=== PATIENT | female | born 1940 | race Caucasian/White ===

== ENCOUNTER → 2016-06-19 | Outpatient (CLI) | payer OTHER ==
[~2016-06-19] MED LIST: ATEN50TA PO; CRESTOR5 MG PO; DIGO0.25 PO; LORA0.5T PO; SERT50TA8 PO
--- NOTE | 2016-06-19 14:07 | RAD ---
Indication six-month follow-up. Targeted ultrasound was performed. Examination was targeted to the 11:30 to 12:00 position of the left breast. There are small well-defined probably benign masses similar to slightly smaller than on the study 12/30/2015. Follow-up mammography is suggested in December of this year. Additional ultrasounds could be obtained if the mammographic images warrant them
== END | disposition home or self-care (01) ==
LOC: KCIC US 13:11
PROVIDERS: ATTEND Internal Medicine
DX: R92.8 Other abnormal and inconclusive findings on diagnostic imaging of breast (principal)
CPT/HCPCS: 76641

== ENCOUNTER → 2017-06-11 | Outpatient (CLI) | payer OTHER ==
[2017-06-11] MEDS: REGADENOSON 0.4 MG/5 ML DISP.SYRIN. IV (09:55)
== END | disposition home or self-care (01) ==
LOC: NM 07:51
DX: R07.89 Other chest pain (principal); F17.200 Nicotine dependence, unspecified, uncomplicated
CPT/HCPCS: 78452; 93017; 96374; 96375; 96376; A9500; J2785

== ENCOUNTER → 2017-06-25 | Outpatient (CLI) | payer OTHER | END | disposition home or self-care (01) | LOC: US 12:38 | DX: I70.202 Unspecified atherosclerosis of native arteries of extremities, left leg (principal); R60.0 Localized edema | CPT/HCPCS: 93925; 93970 ==

== ENCOUNTER → 2017-12-31 | Outpatient (CLI) | payer OTHER ==
--- NOTE | 2017-12-31 12:16 | KCIC ---
EXAM: Bilateral digital screening mammogram with tomosynthesis. HISTORY: 77-year-old female presents for screening mammography. TECHNIQUE: Full-field digital craniocaudal and mediolateral oblique 2D and 3D tomosynthesis images of both breasts are obtained for evaluation. Computer aided detection with kozaza.comD software version 9.3 was applied. COMPARISON: 12/09/2015 BREAST PARENCHYMAL DENSITY: Level B - Scattered fibroglandular densities. FINDINGS: There is no new suspicious mass, microcalcification or region of architectural distortion. IMPRESSION: BI-RADS Category 2: Benign finding(s). RECOMMENDATION: Annual mammography is recommended. If your mammogram demonstrates that you have dense breast tissue, which could hide abnormalities, and if you have other risk factors for breast cancer that have been identified, you might benefit from supplemental screening tests that may be suggested by your ordering physician. Dense breast tissue, in and of itself, is a relatively common condition. This information is not provided to cause undue concern, but rather to raise your awareness and to promote discussion with your physician regarding the presence of other risk factors, in addition to dense breast tissue. A report of your mammography results will be sent to you and your physician. You should contact your physician if you have any questions or concerns regarding this report. Mammography is a sensitive method for finding small breast cancers, but it does not detect them all and is not a substitute for careful clinical examination. A negative mammogram does not negate a clinically suspicious finding and should not result in delay in biopsying a clinically suspicious abnormality. PQRS compliance statement - Patient information was entered into a reminder system with a target due date for the next mammogram. "Our facility is accredited by the [employer] Mammography [employer]." Electronically signed by: Bindu Fuentes MD (12/31/2017 12:13 PM) [facility]
== END | disposition home or self-care (01) ==
LOC: KCIC MAMMO 11:22
PROVIDERS: ATTEND Internal Medicine
DX: Z12.31 Encounter for screening mammogram for malignant neoplasm of breast (principal)
CPT/HCPCS: 77063; 77067

== ENCOUNTER → 2018-01-02 | Outpatient (CLI) | payer OTHER ==
--- NOTE | 2018-01-02 16:59 | KCIC ---
CT study of the chest without [id number] screening study Clinical indications: History of smoking for 50 years. Lung cancer screening. History of non-Hodgkin's lymphoma. TECHNIQUE: Low-dose helical CT scanning of the chest was performed. PQRS compliance Statement One or more of the following individualized dose reduction techniques were utilized for this study: 1. Automated exposure control 2. Adjustment of the mA and/or kV according to patient size 3. Use of iterative reconstruction technique COMPARISON: Chest CT study dated September 24, 2003. FINDINGS: No enlarged thoracic lymphadenopathy is evident. No focal aneurysmal dilatation of the thoracic aorta is seen. 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 The heart size is normal. No pericardial effusion is seen. There is chronic scarring within the inferior segment of the lingula seen previously. No lung nodule or lung mass or consolidative lung infiltrate is seen. No pleural effusion or pneumothorax is evident. The proximal bronchial tree is patent. No osteolytic process is seen. IMPRESSION: No acute radiographic abnormality is evident. No lung mass or lung nodule is evident. LUNG RADS category 1 Calcified atheromatous disease of coronary arteries. Electronically signed by: Chris Batres MD (01/02/2018 4:55 PM) [id number]
== END | disposition home or self-care (01) ==
LOC: KCIC CT 12:47
PROVIDERS: ATTEND Internal Medicine
DX: Z12.2 Encounter for screening for malignant neoplasm of respiratory organs (principal); I25.10 Atherosclerotic heart disease of native coronary artery without angina pectoris; Z87.891 Personal history of nicotine dependence; Z85.72 Personal history of non-Hodgkin lymphomas
CPT/HCPCS: G0297

== ENCOUNTER → 2018-10-27 | Outpatient (CLI) | payer OTHER ==
--- NOTE | 2018-10-27 15:20 | RAD ---
MR#: [id number] Date of Study: 10/27/2018 Ordering Physician: ARJUN CASTRO, Referring Physician: ARJUN CASTRO, Tech: Tobi Ward, JESSIAC, RDMS, RVT, RDCS, RTR APPROVED REPORT Patient Location : OUT-PATIENT Indications Lower Extremity Pain : Bilateral Findings Grayscale images of the bilateral saphenofemoral junctions do not reveal any obvious evidence of thro mbus. The right great saphenous vein measures 4 mm and appears to have been previously ablated. The l eft great saphenous vein measures approximately 4 mm and does not show any evidence of reflux. The bilateral lesser saphenous veins do not show any evidence of reflux. Critical Notification Critical Value: No <Conclusion> 1. No evidence of reflux in the bilateral greater and lesser saphenous veins Signed by : Arjun Castro, Electronically Approved : 10/27/2018 15:20:32
--- NOTE | 2018-10-27 18:11 | RAD ---
MR#: [id number] Date of Study: 10/27/2018 Ordering Physician: SHAHID CASTRO, Referring Physician: SHAHID CASTRO, Tech: Tobi Ward MBA, RDMS, RVT, RDCS, RTR APPROVED REPORT Patient Location: OUT-PATIENT Indications PAD VELOCITY AND DOPPLER WAVEFORM ANALYSIS RIGHT cm/secWaveformSeverity LEFT cm/secWaveform Severity dCFA 117.0TriphasicdCFA 98.0Biphasic Prof Fem Art. 82.0TriphasicProf Fem Art. 73.0Monophasic Fem Art Prox. 111.0TriphasicFem Art Prox. 112.0Triphasic Fem Art Mid. 117.0TriphasicFem Art Mid. 118.0Triphasic Fem Art Dist. 1123.0TriphasicFem Art Dist. 106.0Triphasic Pop Art(Fossa) 71.0TriphasicPop Art(AK) 57.0Biphasic [employer] Prox. 223.0BiphasicPTA Prox. 19.0Monophasic [employer] Dist. 75.0BiphasicPTA Dist. Occluded Per Art Mid. 47.0BiphasicPer Art Mid. 76.0Biphasic CAITIE Prox. 69.0BiphasicATA Prox. 64.0Biphasic DPA 58BiphasicDPA 81Biphasic Image Findings Grayscale images of the bilateral lower extremity arterial vessels demonstrate moderate diffuse plaqu e. No significant above knee disease is identified bilaterally. On the right below the knee there is likely greater than 50% stenosis involving the posterior tibial artery. There is otherwise three-vessel runoff. On the left below the knee the posterior tibial artery appears to be occluded in the mid to distal se gment with a robust two-vessel runoff in the form of a peroneal and anterior tibial vessels. Critical Notification Critical Value: No <Conclusion> 1. 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 Otherwise no significant abno rmalities noted. Signed by : Shahid Castro, Electronically Approved : 10/27/2018 18:10:57
== END | disposition home or self-care (01) ==
LOC: US 12:54
PROVIDERS: ATTEND Internal Medicine Cardiovascular Disease
DX: I73.9 Peripheral vascular disease, unspecified (principal); M79.605 Pain in left leg; M79.604 Pain in right leg
CPT/HCPCS: 93925; 93970

== ENCOUNTER → 2019-02-12 | Outpatient (CLI) | payer OTHER ==
--- NOTE | 2019-02-12 17:00 | KCIC ---
Bilateral digital screening mammograms with 3-D tomosynthesis: Reason for examination: Routine screening. Comparison is made to previous study dated studies dated 12/31/2017 and 12/09/2015. Bilateral mammograms in CC and oblique projections were obtained with 2-D imaging and 3-D tomosynthesis imaging on a Siemens Inspiration unit and reviewed on the workstation. Interpretation was made with the benefit of CAD. The skin and nipples show no abnormalities. No abnormal axillary lymph nodes are seen. The breast parenchyma shows scattered fatty and fibroglandular density. (Breast density: Category B.) There are no dominant masses, suspicious calcifications or architectural distortion. Impression: No evidence of malignancy. Recommend routine screening. BI-RAD Category 2: Benign. "Our facility is accredited by the [employer] Mammography Program." This patient's information has been entered into a reminder system for the patient to be notified with the results of her examination and a target date for the next mammogram. Electronically signed by: Sarah Avila MD (02/12/2019 4:57 PM) [facility]
== END | disposition home or self-care (01) ==
LOC: KCIC MAMMO 12:26
PROVIDERS: ATTEND Internal Medicine
DX: Z12.31 Encounter for screening mammogram for malignant neoplasm of breast (principal)
CPT/HCPCS: 77063; 77067

== ENCOUNTER 2019-09-29 16:15 | Inpatient (IN) | payer MEDICARE, OTHER ==
[2019-09-29] VITALS (10 sets, daily range): BP systolic 136–165; BP diastolic 65–97
[~2019-09-29] VITALS: Ht 162.6 cm; Wt 69.3 kg
[2019-09-29 16:35] LABS: HEMATOCRIT 42.7 % (36.0-47.0); HEMOGLOBIN 14.9 g/dL (12.0-15.5); RED BLOOD COUNT 4.59 x10^6/uL (3.50-5.40); RED CELL DISTRIBUTION WIDTH 13.6 % (11.5-14.5)
--- NOTE | 2019-09-29 16:47 | RAD ---
EXAM: CT Head without IV contrast INDICATION: Reason: FAUSTIN, LEFT FACIAL DROOP / Spl. Instructions: / History: TECHNIQUE: Multi-detector row CT images were obtained of the head without the use of IV contrast. All CT scans performed at this facility utilize dose optimization techniques as appropriate to the exam, including the following: Automated exposure control and adjustment of the mA and/or KV according to patient size (this includes techniques or standardized protocols for targeted exams where dose is indication/reason for exam). COMPARISON: None FINDINGS: BRAIN PARENCHYMA: No evidence of acute intraparenchymal hemorrhage or infarct. Mild generalized parenchymal volume loss. VENTRICLES & EXTRA-AXIAL SPACES: Ventricles are within normal limits. Basilar cisterns are patent. No pathologic extra-axial fluid collection or mass. Tortuous intracranial vessels, most notably the portal and ectatic vertebral artery which measures 5 mm in diameter. ORBITS: Orbital contents are unremarkable. SINUSES: Visualized paranasal sinuses and mastoid air cells are clear. OSSEOUS & SOFT TISSUES: Calvarium and skull base are intact. IMPRESSION: No acute intracranial pathology. FOR INTERNAL CODING PURPOSES Critical result: Findings discussed with MORTEZA JENSEN at 09/29/2019 4:44 PM. RESULT CODE: (C) Electronically signed by: Kiran Peterson MD (09/29/2019 4:44 PM) [id number]
[2019-09-29 16:54] LABS: GFR 53.8; POTASSIUM 4.1 mmol/L (3.5-5.1)
--- NOTE | 2019-09-29 16:56 | PHYS DOC ---
Past Medical History Past Medical History: Hypertension Past Medical History HIGH cholesterol, tachycardia Smoking Status: Never Smoker Drug Use: None General Adult EDM: Chief Complaint: NEURO SYMPTOMS/DEFICITS HPI: HPI: Patient is a 79 year old female with a last known normal at 15:15 presents with slurred speech and left-sided facial droop. Patient denies any weakness in arms or legs or visual changes. Of note patient had a little bit of a headache over the last 2 days but has not had any today. Patient denies any fevers chills cough vomiting or diarrhea. Patient is also having little slurred speech. Review of Systems: Review of Systems: Constitutional: Denies fever or chills. [] Eyes: Denies change in visual acuity. [] HENT: Denies nasal congestion or sore throat. [] Respiratory: Denies cough or shortness of breath. [] Cardiovascular: Denies chest pain or edema. [] GI: Denies abdominal pain, nausea, vomiting, bloody stools or diarrhea. [] : Denies dysuria. [] Musculoskeletal: Denies back pain or joint pain. [] Integument: Denies rash. [] Neurologic: Denies current headache but has new left-sided facial weakness. No numbness to the body no visual changes Endocrine: Denies polyuria or polydipsia. [] Lymphatic: Denies swollen glands. [] Psychiatric: Denies depression or anxiety. [] Heart Score: Risk Factors: Risk Factors: DM, Current or recent (<one month) smoker, HTN, HLP, family history of CAD, obesity. Risk Scores: Score 0 - 3: 2.5% MACE over next 6 weeks - Discharge Home Score 4 - 6: 20.3% MACE over next 6 weeks - Admit for Clinical Observation Score 7 - 10: 72.7% MACE over next 6 weeks - Early Invasive Strategies Allergies: Allergies: Allergies Coded Allergies Type Severity Reaction Last Updated Verified codeine Allergy Intermediate 06/15/13 Yes Physical Exam: PE: Constitutional: Well developed, well nourished, no acute distress, non-toxic appearance. [] HENT: Normocephalic, atraumatic, bilateral external ears normal, no trismus nose normal. [] Eyes: PERRLA, EOMI, conjunctiva normal, no discharge. [] Neck: Normal range of motion, no tenderness, supple, no stridor. [] Cardiovascular:Heart rate regular rhythm, Lungs & Thorax: Bilateral breath sounds clear to auscultation [] Abdomen: Bowel sounds normal, soft, no tenderness, no masses, no pulsatile masses. [] Skin: Warm, dry, no erythema, no rash. [] Back: No tenderness, no CVA tenderness. [] Extremities: No tenderness, no cyanosis, no clubbing, ROM intact, no edema. [] Neurologic: Alert and oriented X 3, normal motor function, normal sensory function, left-sided facial droop sparing the eyebrow. Dysarthria Psychologic: Affect normal, judgement normal, mood normal. [] Current Patient Data: Labs: Laboratory Tests Test 09/29/19 16:28 09/29/19 16:29 09/29/19 17:25 White Blood Count 16.0 x10^3/uL Red Blood Count 4.59 x10^6/uL Hemoglobin 14.9 g/dL Hematocrit 42.7 % Mean Corpuscular Volume 93 fL Mean Corpuscular Hemoglobin 32 pg Mean Corpuscular Hemoglobin Concent 35 g/dL Red Cell Distribution Width 13.6 % Platelet Count 402 x10^3/uL Prothrombin Time 12.0 SEC Prothromb Time International Ratio 0.9 Activated Partial Thromboplast Time 30 SEC Sodium Level 136 mmol/L Potassium Level 4.1 mmol/L Chloride Level 100 mmol/L Carbon Dioxide Level 31 mmol/L Anion Gap 5 Blood Urea Nitrogen 11 mg/dL Creatinine 1.0 mg/dL Estimated GFR (Cockcroft-Gault) 53.8 Glucose Level 84 mg/dL Calcium Level 9.0 mg/dL Total Bilirubin 0.7 mg/dL Direct Bilirubin 0.2 mg/dL Aspartate Amino Transf (AST/SGOT) 30 U/L Alanine Aminotransferase (ALT/SGPT) 49 U/L Alkaline Phosphatase 125 U/L Troponin I Quantitative < 0.017 ng/mL Total Protein 6.6 g/dL Albumin 3.4 g/dL Digoxin Level 1.0 ng/mL Digoxin Last Dose Date Unknown Digoxin Last Dose Time Unknown Glucose (Fingerstick) 88 mg/dL Urine Collection Type Unknown Urine Color Yellow Urine Clarity Clear Urine pH 7.0 Urine Specific Hargill 1.020 Urine Protein Negative mg/dL Urine Glucose (UA) Negative mg/dL Urine Ketones (Stick) Negative mg/dL Urine Blood Negative Urine Nitrite Negative Urine Bilirubin Negative Urine Urobilinogen Dipstick 0.2 mg/dL Urine Leukocyte Esterase Negative Urine RBC 0 /HPF Urine WBC 0 /HPF Urine Squamous Epithelial Cells Few /LPF Urine Bacteria 0 /HPF Current Medications Medications (Trade) Dose Ordered Sig/Yolanda Route PRN Reason Start Time Stop Time Status Last Admin Dose Admin Alteplase, Recombinant 6.2 ml @ 372 mls/hr 1X ONCE IV 09/29/19 17:15 09/29/19 17:16 DC 09/29/19 17:17 Alteplase, Recombinant 55.4 ml @ 55.4 mls/hr Q1H IV 09/29/19 17:15 09/29/19 18:14 DC 09/29/19 17:18 Sodium Chloride 50 ml @ 200 mls/hr 1X ONCE IV 09/29/19 17:15 09/29/19 17:29 DC Ondansetron HCl (Zofran) 4 mg STK-MED ONCE .ROUTE 09/29/19 17:05 09/29/19 17:05 DC Ondansetron HCl (Zofran) 4 mg STK-MED ONCE .ROUTE 09/29/19 17:05 09/29/19 17:06 DC Ondansetron HCl (Zofran) 4 mg 1X ONCE IVP 09/29/19 17:15 09/29/19 17:16 DC 09/29/19 17:20 Iohexol (Omnipaque 350 Mg/ml) 75 ml 1X ONCE IV 09/29/19 17:15 09/29/19 17:19 DC Info (CONTRAST GIVEN -- Rx MONITORING) 1 each PRN DAILY PRN MC SEE COMMENTS 09/29/19 17:30 10/01/19 17:29 Laboratory Tests Test 09/29/19 16:28 09/29/19 16:29 White Blood Count 16.0 x10^3/uL (4.0-11.0) H Red Blood Count 4.59 x10^6/uL (3.50-5.40) Hemoglobin 14.9 g/dL (12.0-15.5) Hematocrit 42.7 % (36.0-47.0) Mean Corpuscular Volume 93 fL (79-100) Mean Corpuscular Hemoglobin 32 pg (25-35) Mean Corpuscular Hemoglobin Concent 35 g/dL (31-37) Red Cell Distribution Width 13.6 % (11.5-14.5) Platelet Count 402 x10^3/uL (140-400) H Prothrombin Time 12.0 SEC (11.7-14.0) Prothrombin Time INR 0.9 (0.8-1.1) Activated Partial Thromboplast Time 30 SEC (24-38) Glucose (Fingerstick) 88 mg/dL (70-99) Laboratory Tests 09/29/19 16:28 Vital Signs: Vital Signs Date Time Temp Pulse Resp B/P (MAP) Pulse Ox O2 Delivery O2 Flow Rate FiO2 09/29/19 17:51 66 16 156/75 (102) 98 Room Air 09/29/19 17:44 70 16 155/72 (99) 98 Room Air 09/29/19 17:36 66 16 160/74 (102) 99 Room Air 09/29/19 17:21 64 16 160/72 (101) 98 09/29/19 17:06 64 16 165/72 (103) 98 09/29/19 16:51 68 16 162/79 (106) 98 09/29/19 16:42 72 20 138/90 (106) 99 09/29/19 16:27 70 20 159/86 (110) 99 Room Air 09/29/19 16:20 98.8 69 18 172/77 (108) 100 Room Air 98.8 EKG: EKG: EKG interpreted by me normal sinus rhythm with rate of 69 left axis deviation left anterior hemiblock incomplete right bundle branch block nonspecific ST changes [] Radiology/Procedures: Radiology/Procedures: [][facility] [address] [place] [address] IMAGING REPORT Signed PATIENT: MOOSE RIOS ACCOUNT: [id number] : 1940 LOCATION: ER AGE: 79 SEX: F EXAM STATUS: REG ER ORD. PHYSICIAN: MORTEZA JENSEN MD REASON: FAUSTIN, LEFT FACIAL DROOP PROCEDURE: CT CODE STROKE HEAD WO EXAM: CT Head without IV contrast INDICATION: Reason: FAUSTIN, LEFT FACIAL DROOP / Spl. Instructions: / History: TECHNIQUE: Multi-detector row CT images were obtained of the head without the use of IV contrast. All CT scans performed at this facility utilize dose optimization techniques as appropriate to the exam, including the following: Automated exposure control and adjustment of the mA and/or KV according to patient size (this includes techniques or standardized protocols for targeted exams where dose is indication/reason for exam). COMPARISON: None FINDINGS: BRAIN PARENCHYMA: No evidence of acute intraparenchymal hemorrhage or infarct. Mild generalized parenchymal volume loss. VENTRICLES & EXTRA-AXIAL SPACES: Ventricles are within normal limits. Basilar cisterns are patent. No pathologic extra-axial fluid collection or mass. Tortuous intracranial vessels, most notably the portal and ectatic vertebral artery which measures 5 mm in diameter. ORBITS: Orbital contents are unremarkable. SINUSES: Visualized paranasal sinuses and mastoid air cells are clear. OSSEOUS & SOFT TISSUES: Calvarium and skull base are intact. IMPRESSION: No acute intracranial pathology. FOR INTERNAL CODING PURPOSES Critical result: Findings discussed with MORTEZA JENSEN at 09/29/2019 4:44 PM. RESULT CODE: (C) Electronically signed by: Yana Peterson MD (09/29/2019 4:44 PM) [id number] DICTATED and SIGNED BY: YANA PETERSON MD DATE: 09/29/19 1644 [facility] [address] [place], [place] [id number] IMAGING REPORT Signed PATIENT: MOOSE RIOS ACCOUNT: [id number] : 1940 LOCATION: ER AGE: 79 SEX: F EXAM STATUS: REG ER ORD. PHYSICIAN: MORTEZA JENSEN MD REASON: CVA PROCEDURE: PORTABLE CHEST 1V EXAM: PORTABLE CHEST 1V INDICATION: Reason: CVA / Spl. Instructions: / History: . TECHNIQUE: Single view COMPARISON: None FINDINGS: The heart size is normal. The great vessels appear unremarkable. There is no hilar or mediastinal mass. The lungs are clear. There is no pleural effusion or pneumothorax. There are no significant osseous abnormalities. IMPRESSION: No active cardiopulmonary disease. Electronically signed by: Yana Peterson MD (09/29/2019 4:52 PM) [id number] DICTATED and SIGNED BY: YANA PETERSON MD DATE: 09/29/19 1000 [facility] [address] [place] [address] IMAGING REPORT Signed PATIENT: MOOSE RIOS ACCOUNT: [id number] : 1940 LOCATION: ER AGE: 79 SEX: F EXAM STATUS: REG ER ORD. PHYSICIAN: MORTEZA JENSEN MD REASON: FAUSTIN, LEFT FACIAL DROOP PROCEDURE: CT ANGIOGRAPHY HEAD AND NECK EXAM: CT Angiogram of the Head and Neck INDICATION: Reason: FAUSTIN, LEFT FACIAL DROOP / Spl. Instructions: IV OMNI 350 75 MLS / History: TECHNIQUE: CT images were obtained through the head per standard CTA protocol. Multiplanar and 3D reformatted images were generated from the CT dataset on an independent workstation. All CT scans performed at this facility utilize dose optimization techniques as appropriate to the exam, including the following: Automated exposure control and adjustment of the mA and/or KV according to patient size (this includes techniques or standardized protocols for targeted exams where dose is indication/reason for exam). IV CONTRAST: Administered COMPARISON: Noncontrast head CT same day FINDINGS: CTA HEAD: There is eccentric filling defect in the right M2 segment within the sylvian fissure, consistent with partially occlusive thrombus. Otherwise, no high-grade large vessel stenosis, proximal or branch vessel occlusion, aneurysm, or vascular malformation. ANTERIOR CIRCULATION: The anterior and right middle cerebral arteries are widely patent. ANTERIOR COMMUNICATING ARTERY: Patent. POSTERIOR COMMUNICATING ARTERIES: Diminutive and not well seen. They may be hypoplastic. POSTERIOR CIRCULATION: Vertebral and basilar arteries are widely patent. Bilateral posterior inferior cerebellar arteries (PICAs), anterior inferior cerebellar arteries (AICAs), and superior cerebellar arteries (SCAs) are visualized and patent. OTHER: No abnormal brain parenchymal enhancement. Paranasal sinuses demonstrate complete opacification of the left maxillary sinus by soft tissue with mucosal enhancement, part of which protrudes into the left nasal cavity and into the anterior ethmoid air cells and the left frontoethmoid recess.. NECK CTA: AORTA: The aortic arch is not fully included. No dissection or acute aortic injury. No hemodynamically significant great vessel origin stenosis. RIGHT CAROTID: Common and internal carotid arteries are widely patent, without evidence of flow limiting stenosis or dissection. LEFT CAROTID: Common and internal carotid arteries are widely patent, without evidence of flow limiting stenosis or dissection. VERTEBRAL ARTERIES: Codominant. No evidence of dissection or flow limiting stenosis. SUBCLAVIAN ARTERIES:Subclavian arteries are patent without stenosis. SOFT TISSUES: Soft tissues are unremarkable. Lung apices show lucencies compatible with centrilobular pattern emphysema. Where applicable, evaluation of ICA stenosis was performed using NASCET criteria, where the site of greatest stenosis is compared to the diameter of the ICA distal to the carotid bulb. IMPRESSION: 1. Partially occlusive M2 segment right middle cerebral artery thrombus. 2. Otherwise unremarkable radiographic study of the head and neck, with great vessel origin is not fully included in the [id number]. 3. Incidental findings of emphysema and sinus disease in the left paranasal sinuses. FOR INTERNAL CODING PURPOSES Critical result: Findings discussed with MORTEZA JENSEN at 09/29/2019 5:02 PM. RESULT CODE: (C) [facility] [address] [place] [address] IMAGING REPORT Signed PATIENT: MOOSE RIOS ACCOUNT: [id number] : 1940 LOCATION: ER AGE: 79 SEX: F EXAM STATUS: REG ER ORD. PHYSICIAN: MORTEZA JENSEN MD REASON: HEADACHE PROCEDURE: CT HEAD WO CONTRAST Exam: CT head INDICATION: Headache TECHNIQUE: Sequential axial images through the head were obtained without the administration of IV contrast. Comparisons: CT 09/29/2019 FINDINGS: Evaluation is limited secondary to recent contrast administration. Minimal hyperdensity noted within sulci of the right occipital lobe on image 13 and right frontal lobe image 9. No large focal parenchymal lesion or hemorrhage is identified. There is no midline shift or sulcal effacement. No large acute vascular territory infarction is identified. Barahona-white distinction is preserved. The ventricular system is within normal limits without compression hydrocephalus. The basal cisterns are well maintained. The visualized portions of the paranasal sinuses and mastoid air cells are well-pneumatized. No acute fractures. IMPRESSION: Limited evaluation secondary to postcontrast technique. There are a few areas of hyperdensity noted within the sulci of the right frontal lobe and right occipital lobe as described above. This may be related to venous drainage of IV contrast however small amount of subarachnoid hemorrhage is not excluded. Short-term follow-up imaging is recommended to reassess. Exposure: One or more of the following in the visualized dose reduction techniques were utilized for this examination: 1. Automated exposure control 2. Adjustment of the MA and/or KV according to patient size Use of iterative of reconstructive technique FOR INTERNAL CODING PURPOSES Critical result: Findings discussed with MORTEZA JENSEN at 09/29/2019 5:57 PM. RESULT CODE: (C) Electronically signed by: Jose Ferrera MD (09/29/2019 5:58 PM) [id number] DICTATED and SIGNED BY: JOSE FERRERA MD DATE: 09/29/191757 Course & Med Decision Making: Course & Med Decision Making Pertinent Labs and Imaging studies reviewed. (See chart for details) [] 1a Level of Consciousness: 0 = Alert; keenly responsive. 1b LOC Questions: 0 = Answers both questions correctly. 1c 0 = Performs both tasks correctly. 2 Best Gaze: 0 = Normal. 3. Visual: 0 = No visual loss. 4. Facial Palsy: 0 = Normal symmetrical movements. 2 = Partial paralysis (total or near-total paralysis of lower face). 5. Motor Arm: Left 0 = No drift; limb holds 90 (or 45) degrees for full 10 seconds. Right 0 = No drift; limb holds 90 (or 45) degrees for full 10 seconds. 6. Motor Leg: Left 0 = No drift; leg holds 30-degree position for full 5 seconds. n Right 0 = No drift; leg holds 30-degree position for full 5 seconds. 7. Limb Ataxia: 0 = present in no limbs 8. Sensory: 0 = Normal; no sensory loss. 9. Best Langauge: 0 = Normal 10 Dysarthria: 1 = [id number] dysarthria; patient slurs at least some words and, at worst, can be understood with some difficulty. 11. Extinction and Inattention (formerly Neglect): 0 = No abnormality. total: 3 Patient presents with a NIH of 3 in the stroke window with no contraindications. I paged neurology at 1649 I heard back from at 1704 and discussed the case with him and we both agree on TPA. Patient has a right M2 partial occlusion. I discussed the case with at who will review the images to see if any interventions are possible for interventional neurology.. At 1713 the TPA was started. At 1734 the patient began having headache the TPA was stopped and she went for stat CT. At 1735 called back and says with partial occlusion is not usually treated with clot retrieval. Repeat head CT shows a possible hemorrhagic conversion. TPA was stopped once the patient began having a headache. With family with Dr. shultz from neurosurgery who says they will see the patient in the hospital. I spoke with Dr. Dickerson will admit the patient. Clinical reassessment after TPA shows improvement of the left-sided facial droop. Critical care time was [60] minutes exclusive of procedures. Critical care time was [60] minutes which includes time at bedside, spent in discussion of patient's care with specialist and/or family members, with interpretation of laboratory and/or radiological studies and is exclusive of procedures. Clinical condition: Acute ischemic stroke with hemorrhagic conversion Interventions: TPA, admission to the ICU with multiple consultations and multiple reassessments Erwin Disclaimer: Erwin Disclaimer: This electronic medical record was generated, in whole or in part, using a voice recognition dictation system. Departure Departure Impression: Primary Impression: Acute ischemic cerebrovascular accident (CVA) involving right middle cerebral artery territory Disposition: ADMITTED INPATIENT Condition: CRITICAL Referrals: HANNAH MONTGOMERY MD (PCP) Justicifation of Admission Dx: Justifications for Admission: Justification of Admission Dx: Yes MORTEZA JENSEN MD Sep 29, 2019 16:56
[2019-09-29 16:58] LABS: ALBUMIN 3.4 g/dL (3.4-5.0); DIRECT BILIRUBIN 0.2 mg/dL (0.0-0.2); TOTAL BILIRUBIN 0.7 mg/dL (0.2-1.0); TOTAL PROTEIN 6.6 g/dL (6.4-8.2)
[2019-09-29] MEDS ORDERED: ONDANSETRON PF 4 MG/2 ML VIAL. ONE ×2 (17:05)
[2019-09-29] MEDS ORDERED: ALTEPLASE 6.2 MG IV ONE (17:15)
[2019-09-29] MEDS ORDERED: ALTEPLASE IV SCH (17:15)
[2019-09-29] MEDS ORDERED: IV NORMAL SALINE 50ML 50 ML IV ONE (17:15)
[2019-09-29] MEDS ORDERED: IOHEXOL 350 MG/ML 100 ML VIAL. IV ONE (17:15)
[2019-09-29] MEDS ORDERED: ONDANSETRON PF 4 MG/2 ML VIAL. IVP ONE (17:15)
--- NOTE | 2019-09-29 17:17 | RAD ---
EXAM: CT Angiogram of the Head and Neck INDICATION: Reason: FAUSTIN, LEFT FACIAL DROOP / Spl. Instructions: IV OMNI 350 75 MLS / History: TECHNIQUE: CT images were obtained through the head per standard CTA protocol. Multiplanar and 3D reformatted images were generated from the CT dataset on an independent workstation. All CT scans performed at this facility utilize dose optimization techniques as appropriate to the exam, including the following: Automated exposure control and adjustment of the mA and/or KV according to patient size (this includes techniques or standardized protocols for targeted exams where dose is indication/reason for exam). IV CONTRAST: Administered COMPARISON: Noncontrast head CT same day FINDINGS: CTA HEAD: There is eccentric filling defect in the right M2 segment within the sylvian fissure, consistent with partially occlusive thrombus. Otherwise, no high-grade large vessel stenosis, proximal or branch vessel occlusion, aneurysm, or vascular malformation. ANTERIOR CIRCULATION: The anterior and right middle cerebral arteries are widely patent. ANTERIOR COMMUNICATING ARTERY: Patent. POSTERIOR COMMUNICATING ARTERIES: Diminutive and not well seen. They may be hypoplastic. POSTERIOR CIRCULATION: Vertebral and basilar arteries are widely patent. Bilateral posterior inferior cerebellar arteries (PICAs), anterior inferior cerebellar arteries (AICAs), and superior cerebellar arteries (SCAs) are visualized and patent. OTHER: No abnormal brain parenchymal enhancement. Paranasal sinuses demonstrate complete opacification of the left maxillary sinus by soft tissue with mucosal enhancement, part of which protrudes into the left nasal cavity and into the anterior ethmoid air cells and the left frontoethmoid recess.. NECK CTA: AORTA: The aortic arch is not fully included. No dissection or acute aortic injury. No hemodynamically significant great vessel origin stenosis. RIGHT CAROTID: Common and internal carotid arteries are widely patent, without evidence of flow limiting stenosis or dissection. LEFT CAROTID: Common and internal carotid arteries are widely patent, without evidence of flow limiting stenosis or dissection. VERTEBRAL ARTERIES: Codominant. No evidence of dissection or flow limiting stenosis. SUBCLAVIAN ARTERIES:Subclavian arteries are patent without stenosis. SOFT TISSUES: Soft tissues are unremarkable. Lung apices show lucencies compatible with centrilobular pattern emphysema. Where applicable, evaluation of ICA stenosis was performed using NASCET criteria, where the site of greatest stenosis is compared to the diameter of the ICA distal to the carotid bulb. IMPRESSION: 1. Partially occlusive M2 segment right middle cerebral artery thrombus. 2. Otherwise unremarkable radiographic study of the head and neck, with great vessel origin is not fully included in the [id number]. 3. Incidental findings of emphysema and sinus disease in the left paranasal sinuses. FOR INTERNAL CODING PURPOSES Critical result: Findings discussed with MORTEZA JENSEN at 09/29/2019 5:02 PM. RESULT CODE: (C) Electronically signed by: Kiran Peterson MD (09/29/2019 5:14 PM) [id number]
[2019-09-29] MEDS ORDERED: CONTRAST GIVEN. MC PRN (17:30)
[2019-09-29 17:37] LABS: BILIRUBIN,URINE NEGATIVE (NEG); CLARITY,URINE CLEAR; COLOR,URINE YELLOW; NITRITE,URINE NEGATIVE (NEG); PROTEIN,URINE NEGATIVE (NEG-TRACE); UROBILINOGEN,URINE 0.2 mg/dL (0.2 mg/dL)
[2019-09-29 17:54] LABS: BACTERIA,URINE 0 /HPF (0-FEW); RBC,URINE 0 /HPF (0-2); SQUAMOUS EPITHELIAL CELL,UR FEW /LPF; WBC,URINE 0 /HPF (0-4)
--- NOTE | 2019-09-29 18:01 | RAD ---
Exam: CT head INDICATION: Headache TECHNIQUE: Sequential axial images through the head were obtained without the administration of IV contrast. Comparisons: CT 09/29/2019 FINDINGS: Evaluation is limited secondary to recent contrast administration. Minimal hyperdensity noted within sulci of the right occipital lobe on image 13 and right frontal lobe image 9. No large focal parenchymal lesion or hemorrhage is identified. There is no midline shift or sulcal effacement. No large acute vascular territory infarction is identified. Barahona-white distinction is preserved. The ventricular system is within normal limits without compression hydrocephalus. The basal cisterns are well maintained. The visualized portions of the paranasal sinuses and mastoid air cells are well-pneumatized. No acute fractures. IMPRESSION: Limited evaluation secondary to postcontrast technique. There are a few areas of hyperdensity noted within the sulci of the right frontal lobe and right occipital lobe as described above. This may be related to venous drainage of IV contrast however small amount of subarachnoid hemorrhage is not excluded. Short-term follow-up imaging is recommended to reassess. Exposure: One or more of the following in the visualized dose reduction techniques were utilized for this examination: 1. Automated exposure control 2. Adjustment of the MA and/or KV according to patient size Use of iterative of reconstructive technique FOR INTERNAL CODING PURPOSES Critical result: Findings discussed with MORTEZA JENSEN at 09/29/2019 5:57 PM. RESULT CODE: (C) Electronically signed by: Jose Borges MD (09/29/2019 5:58 PM) [id number]
[2019-09-29] MEDS ORDERED: DIGO250T3 PO (19:22)
[2019-09-29] MEDS ORDERED: CRESTOR5 MG PO (19:22)
[2019-09-29] MEDS ORDERED: SERT50TA PO (19:22)
[2019-09-29] MEDS ORDERED: LORA0.5T96 PO (19:22)
[2019-09-29] MEDS ORDERED: ATEN50TA PO (19:22)
--- NOTE | 2019-09-29 20:30 | NUR ---
Patient arrived to ICU room 103 via gurney accompanied by ED RN at 1945. Patient able to move self from ER gurney to ICU bed without assistance. Patient hooked up to ICU monitors. NIH stroke scale completed-result is a 5 (see NIHSS intervention for further details). Patient A&Ox4, SR on monitor, RA sats in low to mid 90s, and ROSS. Weakness noted in L arm. Patient states L arm feels heavy. 2 patent IVs in placed, flushed and then SL. Pupils are 4 mm and PERRL. VSS at this time and patient situated in bed. Oriented patient to unit routines, call light, bed controls, tv controls, activity (BR), and diet (NPO). Will continue to do neuro checks and vitals Q30 minutes for 6 hours per TPA checklist and per Dr. Holcomb.
--- NOTE | 2019-09-29 22:30 | PDOC1 ---
History and Physical Date of Admission: Date of Admission DATE: 09/29/19 TIME: 22:23 Chief Complaint: Chief Complain: Facial droop and slurred speech History of Present Illness: HPI: 79 year old female with a last known normal at 15:15 presents with slurred speech and left-sided facial droop. Patient denies any weakness in arms or legs or visual changes. Of note patient had a little bit of a headache over the last 2 days but has not had any today. Patient denies any fevers chills cough vomiting or diarrhea. Patient is also having little slurred speech. ED course: Patient received TPA approved neuro exam. She had a headache after the tPA and a CT head was repeated which did show some hyperdensities concerning for hemorrhage. Patient will be transferred to the ICU for close monitoring of her neuro exam. Patient seen and examined in the ED. She had reported NIH of 3 Past Medical/Surgical History: PMH/PSH: Past Medical History: Hypertension, dyslipidemia, tachycardia Allergies: Allergies: Coded Allergies: codeine (Verified Allergy, Intermediate, 06/15/13) Family History: Family History: Review and none reported Social History: Social History: Smoking Status: Never Smoker Drug Use: None Current Medications: Current Medications Current Medications Alteplase, Recombinant 6.2 ml @ 372 mls/hr 1X ONCE IV Last administered on 09/29/19at 17:17; Start 09/29/19 at 17:15; Stop 09/29/19 at 17:16; Status DC Alteplase, Recombinant 55.4 ml @ 55.4 mls/hr Q1H IV Last administered on 09/29/19at 17:18; Start 09/29/19 at 17:15; Stop 09/29/19 at 18:14; Status DC Sodium Chloride 50 ml @ 200 mls/hr 1X ONCE IV ; Start 09/29/19 at 17:15; Stop 09/29/19 at 17:29; Status DC Ondansetron HCl (Zofran) 4 mg STK-MED ONCE .ROUTE ; Start 09/29/19 at 17:05; Stop 09/29/19 at 17:05; Status DC Ondansetron HCl (Zofran) 4 mg STK-MED ONCE .ROUTE ; Start 09/29/19 at 17:05; Stop 09/29/19 at 17:06; Status DC Ondansetron HCl (Zofran) 4 mg 1X ONCE IVP Last administered on 09/29/19at 17:20; Start 09/29/19 at 17:15; Stop 09/29/19 at 17:16; Status DC Iohexol (Omnipaque 350 Mg/ml) 75 ml 1X ONCE IV ; Start 09/29/19 at 17:15; Stop 09/29/19 at 17:19; Status DC Info (CONTRAST GIVEN -- Rx MONITORING) 1 each PRN DAILY PRN MC SEE COMMENTS; Start 09/29/19 at 17:30; Stop 10/01/19 at 17:29 Active Scripts Active Reported Ativan (Lorazepam) 0.5 Mg Tablet 0.5 Mg PO BID Crestor (Rosuvastatin Calcium) 5 Mg Tablet 1 Tab PO 2 TIMES PER WEEK Zoloft (Sertraline Hcl) 50 Mg Tablet 1 Tab PO DAILY Atenolol 50 Mg Tablet 1 Tab PO DAILY Digoxin 250 Mcg Tablet 250 Mcg PO DAILY Sertraline Hcl 50 Mg Tablet 50 Mg PO Lorazepam 0.5 Mg Tablet 0.5 Mg PO Crestor (Rosuvastatin Calcium) 5 Mg Tablet 5 Mg PO Digoxin 0.25 Mg/5 Ml Solution 0.25 Mg PO Atenolol 50 Mg Tablet 50 Mg PO ROS: Review of Systems Review of System REVIEW OF SYSTEMS: GENERAL: Denies weakness SKIN: No bruising, hair changes or rashes. EYES: No blurred, double or loss of vision. NOSE AND THROAT: No history of nosebleeds, hoarseness or sore throat. HEART: No history of palpitations, chest pain or shortness of breath on exertion. LUNGS: Denies cough, hemoptysis, wheezing or shortness of breath. GASTROINTESTINAL: Denies changes in appetite, nausea, vomiting, diarrhea or constipation. GENITOURINARY: No history of frequency, urgency, hesitancy or nocturia. NEUROLOGIC: Denies history of numbness, tingling, or tremor. PSYCHIATRIC: No history of panic, anxiety or depression. ENDOCRINE: No history of heat or cold intolerance, polyuria or polydipsia. EXTREMITIES: Denies joint pain, pain on walking or stiffness. Physical Exam: Vital Signs: Vital Signs Date Time Temp Pulse Resp B/P (MAP) Pulse Ox O2 Delivery O2 Flow Rate FiO2 09/29/19 17:51 66 16 156/75 (102) 98 Room Air 7/28/20 16:20 98.8 98.8 Physcial Exam: GEN: No apparent distress. Alert and oriented HEENT: Normal cephalic, atraumatic, external auditory canals are patent EYES: Extraocular muscles are intact, pupil are equally round and reactive to light and accommodation MUSCULOSKELETAL: Well developed , well nourished, good range of motion ENDOCRINE: No thyromegaly was palpated LYMPHATICS: No cervical chain or axillary nodes were noted HEMATOPOIETIC: No bruising NECK: Supple, no JVD, no thyromegaly was noted LUNGS: Clear to auscultation in all lung manley without rhonchi or wheezing HEART: RRR, S!, S2 present. Peripheral pulses intact, no obvious murmurs noted ABDOMEN: Soft, nontender. Positive bowel sounds, no organomegaly, normal bowel sounds EXTREMITIES: Without clubbing, cyanosis, or edema. Pedal pulses intact. Negative Homans sign NEUROLOGIC: Normal speech and tone. A&O x 3, moves all extremities. Slight left lower facial droop PSYCHIATRIC: Normal affect, normal mood. Stable SKIN: No ulcerations or rashes, good skin turgor, no jaundice VASCULAR: Good capillary refill, neurovascular bundle appears to be intact Labs: Labs: Laboratory Tests Test 09/29/19 16:28 09/29/19 16:29 09/29/19 17:25 White Blood Count 16.0 x10^3/uL (4.0-11.0) Red Blood Count 4.59 x10^6/uL (3.50-5.40) Hemoglobin 14.9 g/dL (12.0-15.5) Hematocrit 42.7 % (36.0-47.0) Mean Corpuscular Volume 93 fL (79-100) Mean Corpuscular Hemoglobin 32 pg (25-35) Mean Corpuscular Hemoglobin Concent 35 g/dL (31-37) Red Cell Distribution Width 13.6 % (11.5-14.5) Platelet Count 402 x10^3/uL (140-400) Prothrombin Time 12.0 SEC (11.7-14.0) Prothromb Time International Ratio 0.9 (0.8-1.1) Activated Partial Thromboplast Time 30 SEC (24-38) Sodium Level 136 mmol/L (136-145) Potassium Level 4.1 mmol/L (3.5-5.1) Chloride Level 100 mmol/L (98-107) Carbon Dioxide Level 31 mmol/L (21-32) Anion Gap 5 (6-14) Blood Urea Nitrogen 11 mg/dL (7-20) Creatinine 1.0 mg/dL (0.6-1.0) Estimated GFR (Cockcroft-Gault) 53.8 Glucose Level 84 mg/dL (70-99) Calcium Level 9.0 mg/dL (8.5-10.1) Total Bilirubin 0.7 mg/dL (0.2-1.0) Direct Bilirubin 0.2 mg/dL (0.0-0.2) Aspartate Amino Transf (AST/SGOT) 30 U/L (15-37) Alanine Aminotransferase (ALT/SGPT) 49 U/L (14-59) Alkaline Phosphatase 125 U/L (46-116) Troponin I Quantitative < 0.017 ng/mL (0.000-0.055) Total Protein 6.6 g/dL (6.4-8.2) Albumin 3.4 g/dL (3.4-5.0) Digoxin Level 1.0 ng/mL (0.9-2.0) Digoxin Last Dose Date Unknown Digoxin Last Dose Time Unknown Glucose (Fingerstick) 88 mg/dL (70-99) Urine Collection Type Unknown Urine Color Yellow Urine Clarity Clear Urine pH 7.0 (<5.0-8.0) Urine Specific [place] 1.020 (1.000-1.030) Urine Protein Negative mg/dL (NEG-TRACE) Urine Glucose (UA) Negative mg/dL (NEG) Urine Ketones (Stick) Negative mg/dL (NEG) Urine Blood Negative (NEG) Urine Nitrite Negative (NEG) Urine Bilirubin Negative (NEG) Urine Urobilinogen Dipstick 0.2 mg/dL (0.2 mg/dL) Urine Leukocyte Esterase Negative (NEG) Urine RBC 0 /HPF (0-2) Urine WBC 0 /HPF (0-4) Urine Squamous Epithelial Cells Few /LPF Urine Bacteria 0 /HPF (0-FEW) Laboratory Tests Test 09/29/19 16:28 09/29/19 16:29 09/29/19 17:25 White Blood Count 16.0 x10^3/uL (4.0-11.0) Red Blood Count 4.59 x10^6/uL (3.50-5.40) Hemoglobin 14.9 g/dL (12.0-15.5) Hematocrit 42.7 % (36.0-47.0) Mean Corpuscular Volume 93 fL (79-100) Mean Corpuscular Hemoglobin 32 pg (25-35) Mean Corpuscular Hemoglobin Concent 35 g/dL (31-37) Red Cell Distribution Width 13.6 % (11.5-14.5) Platelet Count 402 x10^3/uL (140-400) Prothrombin Time 12.0 SEC (11.7-14.0) Prothromb Time International Ratio 0.9 (0.8-1.1) Activated Partial Thromboplast Time 30 SEC (24-38) Sodium Level 136 mmol/L (136-145) Potassium Level 4.1 mmol/L (3.5-5.1) Chloride Level 100 mmol/L (98-107) Carbon Dioxide Level 31 mmol/L (21-32) Anion Gap 5 (6-14) Blood Urea Nitrogen 11 mg/dL (7-20) Creatinine 1.0 mg/dL (0.6-1.0) Estimated GFR (Cockcroft-Gault) 53.8 Glucose Level 84 mg/dL (70-99) Calcium Level 9.0 mg/dL (8.5-10.1) Total Bilirubin 0.7 mg/dL (0.2-1.0) Direct Bilirubin 0.2 mg/dL (0.0-0.2) Aspartate Amino Transf (AST/SGOT) 30 U/L (15-37) Alanine Aminotransferase (ALT/SGPT) 49 U/L (14-59) Alkaline Phosphatase 125 U/L (46-116) Troponin I Quantitative < 0.017 ng/mL (0.000-0.055) Total Protein 6.6 g/dL (6.4-8.2) Albumin 3.4 g/dL (3.4-5.0) Digoxin Level 1.0 ng/mL (0.9-2.0) Digoxin Last Dose Date Unknown Digoxin Last Dose Time Unknown Glucose (Fingerstick) 88 mg/dL (70-99) Urine Collection Type Unknown Urine Color Yellow Urine Clarity Clear Urine pH 7.0 (<5.0-8.0) Urine Specific [place] 1.020 (1.000-1.030) Urine Protein Negative mg/dL (NEG-TRACE) Urine Glucose (UA) Negative mg/dL (NEG) Urine Ketones (Stick) Negative mg/dL (NEG) Urine Blood Negative (NEG) Urine Nitrite Negative (NEG) Urine Bilirubin Negative (NEG) Urine Urobilinogen Dipstick 0.2 mg/dL (0.2 mg/dL) Urine Leukocyte Esterase Negative (NEG) Urine RBC 0 /HPF (0-2) Urine WBC 0 /HPF (0-4) Urine Squamous Epithelial Cells Few /LPF Urine Bacteria 0 /HPF (0-FEW) Images: Images All labs, images, and reports were reviewed by me personally CTA of head neck IMPRESSION: 1. Partially occlusive M2 segment right middle cerebral artery thrombus. 2. Otherwise unremarkable radiographic study of the head and neck, with great vessel origin is not fully included in the [id number]. 3. Incidental findings of emphysema and sinus disease in the left paranasal sinuses. IMPRESSION: Limited evaluation secondary to postcontrast technique. There are a few areas of hyperdensity noted within the sulci of the right frontal lobe and right occipital lobe as described above. This may be related to venous drainage of IV contrast however small amount of subarachnoid hemorrhage is not excluded. Short-term follow-up imaging is recommended to reassess. Assessment/Plan Assessment/Plan Partially occlusive M2 segment right middle cerebral artery thrombus. few areas of hyperdensity noted within the sulci of the right frontal lobe and right occipital lobe concerning for acute cerebral hemorrhage status post TPA Hypertension Admit to ICU Appreciate neuro recommendations Neurosurgery consult Every neurochecks Systolic blood pressure goals of 140-1 60 Continue telemetry monitoring Pending echo SCD for DVT prophylaxis Cardiac diet Full code Discussed with RN and SW Dispo transfer to the ICU Justicifation of Admission Dx: Justifications for Admission: Justification of Admission Dx: Yes CAROLINA INFANTE MD Sep 29, 2019 22:30
[2019-09-29] MEDS ORDERED: VIT1TABL65 PO (22:52)
[2019-09-29] MEDS ORDERED: GINK120T3 PO (22:56)
[2019-09-29] MEDS ORDERED: IBUP-1027 PO (22:56)
[2019-09-29] MEDS ORDERED: GREE150C PO (22:56)
[2019-09-29] MEDS ORDERED: VIT1TAB.7 PO (22:56)
[2019-09-29] MEDS ORDERED: MAGN400C PO (22:56)
[2019-09-29] MEDS ORDERED: CETI1TAB7 PO (22:56)
[2019-09-30] VITALS (26 sets, daily range): BP systolic 134–175; BP diastolic 63–84
--- NOTE | 2019-09-30 00:46 | CONS ---
DATE OF CONSULTATION: 09/29/2019 REFERRING PHYSICIAN: Dr. Jefferson Dickerson REASON FOR CONSULTATION: Acute stroke. HISTORY OF PRESENT ILLNESS: The patient is a 79-year-old woman who began to have deficits around 03:15. This was her last known normal. She was talking to her daughter and suddenly developed slurred speech and some left facial drooping. The patient really was unaware that she was having problems. She did not notice any weakness of arms or legs. She had no numbness or change of coordination. She presented to the Emergency Room. She has been experiencing some headache over the last few days, but often experiences this when there is a change in the weather patterns. She has not been ill with the cough or cold. She has not had trauma to the head or neck. PAST MEDICAL HISTORY: 1. Hypertension. 2. Hyperlipidemia, intolerant to statins. 3. Tachycardia. ALLERGIES: CODEINE. MEDICATIONS PRIOR TO ADMISSION: Atenolol 50 mg, digoxin 25 mcg, lorazepam 0.5 mg twice per day, and sertraline 50 mg. She is prescribed rosuvastatin, but admits that she really does not take it because with every dosage about 2 or 3 days later, she will experience pain in her legs. FAMILY HISTORY: Noncontributory. SOCIAL HISTORY: She is . She smokes a pack of cigarettes per day. She does not drink alcohol or use recreational drugs. REVIEW OF SYSTEMS: She has had some headache. During TPA administration, the headache shifted from sinus to right parietal. She has had no change of vision or hearing. She has had no trouble with speech or swallow. She has not had shortness of breath, chest or abdominal pain. She has bilateral knee pain, left worse than right. She has not had fever or rash. She does not have any gastrointestinal or genitourinary complaint. She does not complain of numbness or focal weakness. She has had no trouble with balance or walking. She does not complain of bruising or bleeding. She does not complain of swelling. PHYSICAL EXAMINATION: VITAL SIGNS: The blood pressure was 156/75, pulse 66, respirations 16, and temperature 98.8 degrees Fahrenheit. Her weight was 68.5 kilograms and height 64 inches with a calculated body mass index of 25.9. GENERAL: She was alert, awake, and cooperative. Speech was fluent and clear. She had a good fund of recent and remote knowledge. Attention and concentration was intact. She did start to get sleepy later on in the examination, but still was able to fully cooperate. She was well oriented. She appeared well groomed and well nourished. NEUROLOGIC: Examination of the cranial nerves revealed visual manley were full to confrontation except when I did double simultaneous stimulation and she extinguished the left visual field. Extraocular movements were intact. The eyes were conjugate. Pursuit movements were smooth and saccadic eye movements were without dysmetria. Pupils were 3 mm. Funduscopic exam did not reveal papilledema. Facial sensation was intact. The muscles of mastication and facial expression were powerful symmetrically. Hearing was intact to finger rub. The palate arched symmetrically and the tongue was midline with full motion. Sternocleidomastoid and trapezius were powerful. Muscle bulk and tone was normal. There was no arm or leg drift. Power was full in the upper extremities. Initially, I thought there was a hint of weakness on the left side, but with repeat testing, she seemed to do fairly well. There was, however, some weakness in the left leg compared to the right. She was weak with left knee flexion, hip flexion and dorsiflexion. Right leg strength was fairly full. Reflexes were symmetric in the upper extremities, 1-2/4. Reflexes in the lower extremities were slightly brisker on the left side at the knee and ankle. Toes were not upgoing, but more her foot withdrew to plantar stimulation. Coordination testing with [id number], fine motor, and rapid alternating movements not as well performed with the left. She had some ataxia with [id number]. [id number] on the left leg also had some ataxia compared to the right leg. Sensory examination was intact to pain, light touch, proprioception, graphesthesia, cold thermal and vibration. There was no extinction to double simultaneous stimulation. Gait was not testable. NECK: Auscultation of the carotid arteries did not reveal a bruit. HEART: Heart rhythm was regular without a murmur. EXTREMITIES: Peripheral pulses were symmetric in the wrists and in the feet. There was no edema or cyanosis. LABORATORY RESULTS: CBC revealed an elevated white blood cell count at 16. The hemoglobin and hematocrit were normal, but platelet count was elevated to 402. Chemistries were performed on 09/29/2019 revealing normal electrolytes. BUN and creatinine were normal, and GFR calculated at 53.8. Glucose was normal as was calcium. Liver enzymes were not elevated except alkaline phosphatase was 125. Total protein and albumin were normal. Troponin was not elevated. Digoxin level was 1. Urinalysis was negative. Coagulation studies reveal PT/INR to be 0.[address] head initially performed on 09/29/2019 revealed no acute intracranial pathology. CTA of the head was performed of the head and neck on 09/29/2019. This revealed partially occluded M2 segment of the right middle cerebral artery. This was otherwise unremarkable. There were signs of emphysema and sinus disease in the left paranasal sinus. Chest x-ray was performed on 09/29/2019 revealing no active cardiopulmonary disease. A followup CT scan of the head was performed after she received her bolus and 20 minutes of TPA when the headache changed character. This was a more difficult CT scan to interpret because she had received the dye from the CAT scan arteriogram. There were few areas of hyperdensity in the sulci of the right frontal and occipital lobe, which potentially could be venous drainage of the dye, but a small subarachnoid hemorrhage could not be excluded. IMPRESSION: The patient is a very pleasant 79-year-old woman who developed symptoms of stroke with left facial droop and dysarthria around 03:15 today. She presented to the Emergency Room in a timely fashion and did not have contraindication to intravenous TPA and did have evidence of thrombus in the M2 segment. TPA was initiated and [facility] was contacted to determine if this was a vessel they could do a thrombectomy. They felt this was too far out and did not recommend this intervention. She then developed headache and had a CT scan which does bring out the possibility of some small amount of subarachnoid hemorrhage or this could be related to the dye from the CAT scan arteriogram. Regardless, it was felt that TPA needed to be stopped in case this was hemorrhage. Her neurologic exam was abnormal revealing evidence of some coordination change of the left arm and leg, some weakness of the left leg more than the arm, and some extinction to the left visual field only when there was double simultaneous stimulation. All this would point to a right hemispheric stroke potentially in the distribution of the middle cerebral artery. RECOMMENDATIONS: She will be admitted to the Intensive Care Unit and have close monitoring status post TPA protocol. We will have imaging at 24 hours with an MRI brain to better evaluate for stroke. We will obtain an echocardiogram. She does not need a carotid Doppler because she has already had a CAT scan arteriogram. She will need to stop smoking. I appreciate being involved in her care and will be happy to re-evaluate. EDUARD BRENNAN MD DR: FREDY/edenilson JOB#: [id number] / [id number]
--- NOTE | 2019-09-30 03:27 | EKG ---
[facility] [address] [place] [address] Test Date: 2019-09-29 Test Time: 16:27:24 Pat Name: MOOSE RIOS Department: Room: Gender: F [employer] Consult[employer] Supervisor: : [id number] Requested By: MORTEZA JENSEN Order Number: [id number] Reading MD: Measurements Intervals [place] Rate: 69 P: 52 IN: 194 QRS: -38 QRSD: 100 T: 35 QT: 394 QTc: 424 Interpretive Statements SINUS RHYTHM ABNORMAL LEFT AXIS DEVIATION LEFT ANTERIOR FASCICULAR BLOCK INCOMPLETE RIGHT BUNDLE BRANCH BLOCK ABNORMAL ECG RI6.01 No previous ECG available for comparison
--- NOTE | 2019-09-30 07:34 | PDOC ---
[facility] PROGRESS NOTE Chief Complaint Chief Complaint Partially occlusive M2 segment right middle cerebral artery thrombus. few areas of hyperdensity noted within the sulci of the right frontal lobe and right occipital lobe concerning for acute cerebral hemorrhage status post TPA Hypertension Admit to ICU Appreciate neuro recommendations Neurosurgery consult Every neurochecks Systolic blood pressure goals of 140-1 60 Continue telemetry monitoring Pending echo SCD for DVT prophylaxis Cardiac diet Full code Discussed with RN and MEGHA Dispo continue ICU care. Pending MRI of the brain Critical care time spen of 35 minutes History of Present Illness History of Present Illness 79 year old female with a last known normal at 15:15 presents with slurred speech and left-sided facial droop. Patient denies any weakness in arms or legs or visual changes. Of note patient had a little bit of a headache over the last 2 days but has not had any today. Patient denies any fevers chills cough vomiting or diarrhea. Patient is also having little slurred speech. ED course: Patient received TPA approved neuro exam. CT head was repeated and did show some hyperdensities. Patient will be transferred to the ICU for close monitoring of her neuro exam. Patient seen and examined in the ED. She had reported NIH of 3 Vitals/I&O Vitals/I&O: Vital Signs Date Time Temp Pulse Resp B/P (MAP) Pulse Ox O2 Delivery O2 Flow Rate FiO2 09/30/19 06:00 70 20 162/84 (110) 97 Nasal Cannula 2.0 09/30/19 04:00 98.7 98.7 I & O 09/29/19 09/29/19 09/30/19 15:00 23:00 07:00 Output Total 200 ml 300 ml Balance -200 ml -300 ml Physical Exam Physical Exam: GEN: No apparent distress. Alert and oriented HEENT: Normal cephalic, atraumatic, external auditory canals are patent EYES: Extraocular muscles are intact, pupil are equally round and reactive to light and accommodation MUSCULOSKELETAL: Well developed , well nourished, good range of motion ENDOCRINE: No thyromegaly was palpated LYMPHATICS: No cervical chain or axillary nodes were noted HEMATOPOIETIC: No bruising NECK: Supple, no JVD, no thyromegaly was noted LUNGS: Clear to auscultation in all lung manley without rhonchi or wheezing HEART: RRR, S!, S2 present. Peripheral pulses intact, no obvious murmurs noted ABDOMEN: Soft, nontender. Positive bowel sounds, no organomegaly, normal b owel sounds EXTREMITIES: Without clubbing, cyanosis, or edema. Pedal pulses intact. Negative Homans sign NEUROLOGIC: Normal speech and tone. A&O x 3, moves all extremities. Slight left lower facial droop PSYCHIATRIC: Normal affect, normal mood. Stable SKIN: No ulcerations or rashes, good skin turgor, no jaundice VASCULAR: Good capillary refill, neurovascular bundle appears to be intact Labs Labs: Laboratory Tests Test 09/29/19 16:28 09/29/19 16:29 09/29/19 17:25 White Blood Count 16.0 x10^3/uL (4.0-11.0) Red Blood Count 4.59 x10^6/uL (3.50-5.40) Hemoglobin 14.9 g/dL (12.0-15.5) Hematocrit 42.7 % (36.0-47.0) Mean Corpuscular Volume 93 fL (79-100) Mean Corpuscular Hemoglobin 32 pg (25-35) Mean Corpuscular Hemoglobin Concent 35 g/dL (31-37) Red Cell Distribution Width 13.6 % (11.5-14.5) Platelet Count 402 x10^3/uL (140-400) Prothrombin Time 12.0 SEC (11.7-14.0) Prothromb Time International Ratio 0.9 (0.8-1.1) Activated Partial Thromboplast Time 30 SEC (24-38) Sodium Level 136 mmol/L (136-145) Potassium Level 4.1 mmol/L (3.5-5.1) Chloride Level 100 mmol/L (98-107) Carbon Dioxide Level 31 mmol/L (21-32) Anion Gap 5 (6-14) Blood Urea Nitrogen 11 mg/dL (7-20) Creatinine 1.0 mg/dL (0.6-1.0) Estimated GFR (Cockcroft-Gault) 53.8 Glucose Level 84 mg/dL (70-99) Calcium Level 9.0 mg/dL (8.5-10.1) Total Bilirubin 0.7 mg/dL (0.2-1.0) Direct Bilirubin 0.2 mg/dL (0.0-0.2) Aspartate Amino Transf (AST/SGOT) 30 U/L (15-37) Alanine Aminotransferase (ALT/SGPT) 49 U/L (14-59) Alkaline Phosphatase 125 U/L (46-116) Troponin I Quantitative < 0.017 ng/mL (0.000-0.055) Total Protein 6.6 g/dL (6.4-8.2) Albumin 3.4 g/dL (3.4-5.0) Digoxin Level 1.0 ng/mL (0.9-2.0) Digoxin Last Dose Date Unknown Digoxin Last Dose Time Unknown Glucose (Fingerstick) 88 mg/dL (70-99) Urine Collection Type Unknown Urine Color Yellow Urine Clarity Clear Urine pH 7.0 (<5.0-8.0) Urine Specific [place] 1.020 (1.000-1.030) Urine Protein Negative mg/dL (NEG-TRACE) Urine Glucose (UA) Negative mg/dL (NEG) Urine Ketones (Stick) Negative mg/dL (NEG) Urine Blood Negative (NEG) Urine Nitrite Negative (NEG) Urine Bilirubin Negative (NEG) Urine Urobilinogen Dipstick 0.2 mg/dL (0.2 mg/dL) Urine Leukocyte Esterase Negative (NEG) Urine RBC 0 /HPF (0-2) Urine WBC 0 /HPF (0-4) Urine Squamous Epithelial Cells Few /LPF Urine Bacteria 0 /HPF (0-FEW) Assessment and Plan Assessmemt and Plan Problems Medical Problems: (1) Acute ischemic cerebrovascular accident (CVA) involving right middle cerebral artery territory Status: Acute Comment Review of Relevant I have reviewed the following items mike (where applicable) has been applied. Medications: Current Medications Medications (Trade) Dose Ordered Sig/Yolanda Route PRN Reason Start Time Stop Time Status Last Admin Dose Admin Alteplase, Recombinant 6.2 ml @ 372 mls/hr 1X ONCE IV 09/29/19 17:15 09/29/19 17:16 DC 09/29/19 17:17 Alteplase, Recombinant 55.4 ml @ 55.4 mls/hr Q1H IV 09/29/19 17:15 09/29/19 18:14 DC 09/29/19 17:18 Ondansetron HCl (Zofran) 4 mg 1X ONCE IVP 09/29/19 17:15 09/29/19 17:16 DC 09/29/19 17:20 Justicifation of Admission Dx: Justifications for Admission: Justification of Admission Dx: Yes CAROLINA INFANTE MD Sep 30, 2019 07:34
--- NOTE | 2019-09-30 14:00 | NUR ---
SS following for discharge planning. SS reviewed pt chart and discussed with pt RN. Pt is from home with spouse and is currently on room air. Pt had TPA. Pt had ECHO this morning and will have MRI later today. PT/OT ordered. SS will continue to follow for discharge planning.
--- NOTE | 2019-09-30 14:15 | CARD ---
MR#: [id number] Date of Study: 09/30/2019 Ordering Physician: EDURAD BRENNAN, Referring Physician: EDUARD BRENNAN, Tech: Beatriz Wylie [facility] APPROVED REPORT EXAM: Two-dimensional and M-mode echocardiogram with Doppler and color Doppler. Other Information Quality : Good INDICATION CVA/TIA RISK FACTORS Smoking 2D DIMENSIONS RVDd2.3 (2.9-3.5cm)Left Atrium(2D)2.8 (1.6-4.0cm) IVSd0.5 (0.7-1.1cm)Aortic Root(2D)2.3 (2.0-3.7cm) LVDd4.8 (3.9-5.9cm)LVOT Diameter2.0 (1.8-2.4cm) PWd0.6 (0.7-1.1cm)LVDs3.2 (2.5-4.0cm) FS (%) 33.1 %SV64.9 ml LVEF(%)61.7 (>50%) Aortic Valve AoV Peak Tyrel.161.3cm/sAoV VTI32.5cm AO Peak GR.10.4mmHgLVOT VTI 26.74cm AO Mean GR.6mmHgAVA (VTI)2.48cm2 AI P 1/2 Xpnr086tu Mitral Valve MV E Rsfxihjo066.2cm/sMV DECEL [id number] MV A Nsyyjuov59.3cm/sE/A Ratio1.2 TDI Lateral E' P. V7.47cm/sMedial E' P. V5.79cm/s E/Lateral E'15.6E/Medial E'20.1 Tricuspid Valve TR P. Fsbhpwlo283qr/sRAP [id number] TR Peak Gr.77gyVfCFNW29zoEc Pulmonary Vein S1 Rtfivjkz51.3cm/sS2 Tqtvekoh28.15cm/s D2 Vfzzllgr34.1cm/s LEFT VENTRICLE The left ventricle is normal size. There is normal left ventricular wall thickness. The left ventricu lar systolic function is normal and the ejection fraction is within normal range. The Ejection Fracti on is 55-60%. There is normal LV segmental wall motion. Transmitral Doppler flow pattern is Grade II- pseudonormal filling dynamics. RIGHT VENTRICLE The right ventricle is normal size. The right ventricular systolic function is normal. ATRIA The left atrium size is normal. The right atrium size is normal. The interatrial septum is intact wit h no evidence for an atrial septal defect or patent foramen ovale as noted on 2-D or Doppler imaging. AORTIC VALVE The aortic valve is not well visualized. Doppler and Color Flow revealed mild aortic regurgitation. T here is no significant aortic valvular stenosis. MITRAL VALVE The mitral valve is calcified but opens well. Posterior mitral annular calcification is moderate. The re is no evidence of mitral valve prolapse. There is no mitral valve stenosis. Doppler and Color-flow revealed trace to mild mitral regurgitation. TRICUSPID VALVE The tricuspid valve is normal in structure and function. Doppler and Color Flow revealed trace tricus pid regurgitation. The PA pressure was estimated at 25 mmHg. There is no tricuspid valve stenosis. PULMONIC VALVE The pulmonic valve is not well visualized. Doppler and Color Flow revealed no pulmonic valvular regur gitation. There is no pulmonic valvular stenosis. GREAT VESSELS The aortic root is normal in size. The ascending aorta is not well seen. The IVC is normal in size an d collapses >50% with inspiration. PERICARDIAL EFFUSION There is no evidence of significant pericardial effusion. Critical Notification Critical Value: No <Conclusion> The left ventricular systolic function is normal and the ejection fraction is within normal range. Th e Ejection Fraction is 55-60%. There is normal LV segmental wall motion. Doppler and Color Flow revealed mild aortic regurgitation. Technically difficult study Signed by : Arjun Vilchis, Electronically Approved : 09/30/2019 14:15:10
[2019-09-30] MEDS ORDERED: ACETAMINOPHEN 650 MG/20.3 ML SOLUTION. PEG PRN (14:45)
[2019-09-30] MEDS: ACETAMINOPHEN 325 MG TABLET. PO PRN (14:54)
[2019-09-30] MEDS: ONDANSETRON PF 4 MG/2 ML VIAL. IVP PRN (14:54)
--- NOTE | 2019-09-30 17:37 | PDOC ---
PROGRESS NOTES Assessment Problems Medical Problems: (1) Acute ischemic cerebrovascular accident (CVA) involving right middle cerebral artery territory-she continues to have some deficits with weakness of the left leg and coordination deficits of the left leg. She also has loss of left visual field to double simultaneous stimulation. She has improved with respect to the left upper extremity and speech. MRI of the brain is pending to be performed 24 hours after TPA. Echocardiogram was not revealing. CT angiogram did reveal occlusion of the right M2 segment. Status: Acute Plan 1. If the MRI of the brain does not reveal hemorrhage then we will initiate aspirin for stroke prevention. We will see the extent of stroke. 2. She has a history of hyperlipidemia but has been completely intolerant to all statins. I would consider using Repatha. 3. We discussed the importance of immediate smoking cessation as this is a modifiable risk factor. 4. We discussed lifestyle habits to reduce risk of future stroke. Subjective I feel just fine. I did not remember you from the emergency room. I have seen a lot of different people. Objective Vital Signs Date Time Temp Pulse Resp B/P (MAP) Pulse Ox O2 Delivery O2 Flow Rate FiO2 09/30/19 16:20 Room Air 09/30/19 16:20 98.2 78 137/63 (87) 95 98.2 09/30/19 11:15 18 09/30/19 10:22 2.0 Intake and Output 09/30/19 07:00 Output Total 500 ml Balance -500 ml Output Urine Total 500 ml PHYSICAL EXAM She was alert, awake and cooperative. Speech was fluent and clear. She had a good fund of recent and remote knowledge. Attention and concentration was intact. Examination of the cranial nerves revealed visual manley were full to confrontation except with stimulation of both visual manley in which case she neglected the left side. Extraocular movements were intact. The eyes were conjugate. Pupils were 3 mm and reactive. Facial sensation was intact. The muscles of mastication and facial expression were symmetric. Hearing was intact. Muscle bulk and tone was normal. Power was full in the upper extremities. She had weakness with left hip and knee flexion but not right. Coordination testing with [id number] and fine motor movements was well performed in the upper extremities. She had some ataxia of the left leg with [id number]. Sensory examination was intact to light touch. Review of Relevant I have reviewed the following items mike (where applicable) has been applied. Labs Laboratory Tests Test 09/29/19 16:28 09/29/19 16:29 09/29/19 17:25 White Blood Count 16.0 x10^3/uL (4.0-11.0) Red Blood Count 4.59 x10^6/uL (3.50-5.40) Hemoglobin 14.9 g/dL (12.0-15.5) Hematocrit 42.7 % (36.0-47.0) Mean Corpuscular Volume 93 fL (79-100) Mean Corpuscular Hemoglobin 32 pg (25-35) Mean Corpuscular Hemoglobin Concent 35 g/dL (31-37) Red Cell Distribution Width 13.6 % (11.5-14.5) Platelet Count 402 x10^3/uL (140-400) Prothrombin Time 12.0 SEC (11.7-14.0) Prothromb Time International Ratio 0.9 (0.8-1.1) Activated Partial Thromboplast Time 30 SEC (24-38) Sodium Level 136 mmol/L (136-145) Potassium Level 4.1 mmol/L (3.5-5.1) Chloride Level 100 mmol/L (98-107) Carbon Dioxide Level 31 mmol/L (21-32) Anion Gap 5 (6-14) Blood Urea Nitrogen 11 mg/dL (7-20) Creatinine 1.0 mg/dL (0.6-1.0) Estimated GFR (Cockcroft-Gault) 53.8 Glucose Level 84 mg/dL (70-99) Calcium Level 9.0 mg/dL (8.5-10.1) Total Bilirubin 0.7 mg/dL (0.2-1.0) Direct Bilirubin 0.2 mg/dL (0.0-0.2) Aspartate Amino Transf (AST/SGOT) 30 U/L (15-37) Alanine Aminotransferase (ALT/SGPT) 49 U/L (14-59) Alkaline Phosphatase 125 U/L (46-116) Troponin I Quantitative < 0.017 ng/mL (0.000-0.055) Total Protein 6.6 g/dL (6.4-8.2) Albumin 3.4 g/dL (3.4-5.0) Digoxin Level 1.0 ng/mL (0.9-2.0) Digoxin Last Dose Date Unknown Digoxin Last Dose Time Unknown Glucose (Fingerstick) 88 mg/dL (70-99) Urine Collection Type Unknown Urine Color Yellow Urine Clarity Clear Urine pH 7.0 (<5.0-8.0) Urine Specific [place] 1.020 (1.000-1.030) Urine Protein Negative mg/dL (NEG-TRACE) Urine Glucose (UA) Negative mg/dL (NEG) Urine Ketones (Stick) Negative mg/dL (NEG) Urine Blood Negative (NEG) Urine Nitrite Negative (NEG) Urine Bilirubin Negative (NEG) Urine Urobilinogen Dipstick 0.2 mg/dL (0.2 mg/dL) Urine Leukocyte Esterase Negative (NEG) Urine RBC 0 /HPF (0-2) Urine WBC 0 /HPF (0-4) Urine Squamous Epithelial Cells Few /LPF Urine Bacteria 0 /HPF (0-FEW) Medications Current Medications Alteplase, Recombinant 6.2 ml @ 372 mls/hr 1X ONCE IV Last administered on 09/29/19at 17:17; Start 09/29/19 at 17:15; Stop 09/29/19 at 17:16; Status DC Alteplase, Recombinant 55.4 ml @ 55.4 mls/hr Q1H IV Last administered on 09/29/19at 17:18; Start 09/29/19 at 17:15; Stop 09/29/19 at 18:14; Status DC Sodium Chloride 50 ml @ 200 mls/hr 1X ONCE IV ; Start 09/29/19 at 17:15; Stop 09/29/19 at 17:29; Status DC Ondansetron HCl (Zofran) 4 mg STK-MED ONCE .ROUTE ; Start 09/29/19 at 17:05; Stop 09/29/19 at 17:05; Status DC Ondansetron HCl (Zofran) 4 mg STK-MED ONCE .ROUTE ; Start 09/29/19 at 17:05; Stop 09/29/19 at 17:06; Status DC Ondansetron HCl (Zofran) 4 mg 1X ONCE IVP Last administered on 09/29/19at 17:20; Start 09/29/19 at 17:15; Stop 09/29/19 at 17:16; Status DC Iohexol (Omnipaque 350 Mg/ml) 75 ml 1X ONCE IV ; Start 09/29/19 at 17:15; Stop 09/29/19 at 17:19; Status DC Info (CONTRAST GIVEN -- Rx MONITORING) 1 each PRN DAILY PRN MC SEE COMMENTS; Start 09/29/19 at 17:30; Stop 10/01/19 at 17:29 Ondansetron HCl (Zofran) 4 mg PRN Q6HRS PRN IVP NAUSEA/VOMITING Last administered on 09/30/19at 14:54; Start 09/30/19 at 14:45 Acetaminophen (Tylenol) 650 mg PRN Q6HRS PRN PEG MILD PAIN / TEMP > 100.3'F; Start 09/30/19 at 14:45; Status UNV Acetaminophen (Tylenol) 650 mg PRN Q6HRS PRN PO pain Last administered on 09/30/19at 14:54; Start 09/30/19 at 14:45 Active Scripts Active Reported Magnesium (Magnesium Oxide) 400 Mg Capsule 1 Cap PO DAILY 30 Days Zyrtec-D Tablet (Cetirizine Hcl/Pseudoephedrine) 1 Each Tab.er.12h 1 Tab PO BID Ibuprofen 400 Mg Tablet 400 Mg PO PRN Q6HRS PRN Ginkgo Biloba 120 Mg Tablet 2 Tab PO DAILY 30 Days Green Tea Extract (Green Tea Barney Extract) 150 Mg Capsule 150 Mg PO DAILY Dialyvite 800 Plus D Wafer (Vit B Comp&C/Folic Acid/Vit D3) 1 Each Tab.chew 1 Tab PO DAILY 30 Days Ostera Tablet (Vit D3 & K/Berberine Hcl/Hops) 1 Each Tablet 1 Each PO DAILY Ativan (Lorazepam) 0.5 Mg Tablet 0.5 Mg PO BID Crestor (Rosuvastatin Calcium) 5 Mg Tablet 1 Tab PO 2 TIMES PER WEEK Zoloft (Sertraline Hcl) 50 Mg Tablet 1 Tab PO DAILY Atenolol 50 Mg Tablet 1 Tab PO DAILY Digoxin 250 Mcg Tablet 250 Mcg PO DAILY Sertraline Hcl 50 Mg Tablet 50 Mg PO Lorazepam 0.5 Mg Tablet 0.5 Mg PO Crestor (Rosuvastatin Calcium) 5 Mg Tablet 5 Mg PO Digoxin 0.25 Mg/5 Ml Solution 0.25 Mg PO Atenolol 50 Mg Tablet 50 Mg PO Vitals/I & O Vital Sign - Last 24 Hours 09/29/19 09/29/19 09/29/1909/28/20 17:36 17:44 17:51 18:09 Pulse 66 70 66 72 Resp 16 16 16 16 B/P (MAP) 160/74 (102) 155/72 (99) 156/75 (102) 173/86 (115) Pulse Ox 99 98 98 98 O2 Delivery Room Air Room Air Room Air 09/29/19 09/29/19 09/29/19 09/29/19 18:21 18:36 18:51 19:06 Pulse 66 66 68 66 Resp 16 16 16 16 B/P (MAP) 157/86 (109) 150/85 (106) 155/82 (106) 151/72 (98) Pulse Ox 96 94 97 97 O2 Delivery Room Air 09/29/19 09/29/19 09/29/19 09/29/19 20:00 20:00 20:15 20:30 Temp 97.8 97.8 Pulse 68 68 68 Resp 18 17 17 B/P (MAP) 165/71 (102) 156/97 (116) 162/78 (106) Pulse Ox 99 95 93 O2 Delivery Room Air Room Air Room Air Room Air 09/29/19 09/29/19 09/29/19 09/29/19 20:45 21:00 21:30 22:00 Pulse 68 68 70 70 Resp 17 17 20 17 B/P (MAP) 149/68 (95) 146/68 (94) 153/83 (106) 142/68 (92) Pulse Ox 91 92 96 91 O2 Delivery Room Air Room Air Room Air Room Air 09/29/19 09/29/19 09/29/19 09/30/19 22:30 23:00 23:30 00:00 Temp 98.1 98.1 Pulse 66 66 68 68 Resp 18 16 16 16 B/P (MAP) 159/76 (103) 136/69 (91) 136/65 (88) 134/65 (88) Pulse Ox 91 92 92 91 O2 Delivery Room Air Room Air Room Air Room Air 09/30/19 09/30/19 09/30/19 09/30/19 00:00 00:30 01:00 01:30 Pulse 68 68 67 Resp 15 10 15 B/P (MAP) 156/72 (100) 163/70 (101) 165/77 (106) Pulse Ox 93 98 99 O2 Delivery Room Air Room Air Nasal Cannula Nasal Cannula O2 Flow Rate 2.0 2.0 09/30/19 09/30/19 09/30/19 09/30/19 02:00 02:30 03:00 04:00 Pulse 66 68 67 Resp 17 17 16 B/P (MAP) 167/72 (103) 158/69 (98) 148/68 (94) Pulse Ox 98 96 95 O2 Delivery Nasal Cannula Nasal Cannula Nasal Cannula Room Air O2 Flow Rate 2.0 2.0 2.0 09/30/19 09/30/19 09/30/19 09/30/19 04:00 05:00 06:00 07:20 Temp 98.7 98.2 98.7 98.2 Pulse 71 69 70 70 Resp 16 15 20 B/P (MAP) 148/72 (97) 169/74 (105) 162/84 (110) 148/72 (97) Pulse Ox 96 97 97 97 O2 Delivery Nasal Cannula Nasal Cannula Nasal Cannula Nasal Cannula O2 Flow Rate 2.0 2.0 2.0 2.0 09/30/19 09/30/19 09/30/19 09/30/19 07:48 08:00 09:24 10:22 Pulse 70 72 69 B/P (MAP) 160/75 (103) 145/69 (94) 150/84 (106) Pulse Ox 97 98 98 O2 Delivery Nasal Cannula Nasal Cannula Nasal Cannula Nasal Cannula O2 Flow Rate 2.0 2.0 2.0 2.0 09/30/19 09/30/19 09/30/19 09/30/19 11:15 12:46 12:51 13:00 Temp 98.2 98.2 Pulse 71 74 69 Resp 18 B/P (MAP) 153/71 (98) 154/75 (101) 149/73 (98) Pulse Ox 97 96 95 O2 Delivery Room Air Room Air Room Air Room Air 09/30/19 09/30/19 09/30/19 09/30/19 14:18 15:20 16:20 16:20 Temp 98.2 98.2 Pulse 73 71 78 B/P (MAP) 156/75 (102) 144/72 (96) 137/63 (87) Pulse Ox 95 95 95 O2 Delivery Room Air Room Air Room Air Room Air Intake and Output 09/29/19 09/29/19 09/30/19 15:00 23:00 07:00 Output Total 200 ml 300 ml Balance -200 ml -300 ml Justicifation of Admission Dx: Justifications for Admission: Justification of Admission Dx: Yes EDUARD BRENNAN MD Sep 30, 2019 17:37
--- NOTE | 2019-09-30 18:00 | RAD ---
BRAIN W/O CONTRAST History:Reason: 24 hours post IV tPA,. Stroke Technique: Multiplanar, multi sequential MR imaging was performed of the brain without contrast. Comparison: CT September 21, 2019 Findings: Multiple acute right cerebral hemispheric infarcts involving the right frontal, parietal and posterior temporal cortex and subcortical white matter. Additional infarct within the right subinsular cortex and right frontal white matter. Increased sulcal FLAIR signal within the right posterior temporal parietal region (series 7 image 9, 11 and 12), may represent subarachnoid hemorrhage. Mild additional foci of FLAIR hyperintensities within the hemispheric white matter, most often due to chronic microvascular ischemia. Small chronic left parietal cortical infarct. Brain parenchymal volume loss. Imaged orbits are unremarkable. Left maxillary sinus opacification. Additional desiccation of left ethmoid air cells. Mastoid air cells are clear. Impression: 1. Multiple acute right cerebral hemispheric infarcts. 2. Increased sulcal FLAIR signal within the right posterior temporal/parietal region, may represent small volume subarachnoid hemorrhage given previous findings on CT. Recommend follow-up. 3. Left maxillary and ethmoid sinus disease. FOR INTERNAL CODING PURPOSES Critical result: Findings discussed with patient's nurse at 09/30/2019 5:53 PM. RESULT CODE: (C) Electronically signed by: Ramana Gonzales DO (09/30/2019 5:58 PM) [facility]
[2019-09-30 19:06] LABS: BASO # 0.1 x10^3/uL (0.0-0.2); BASO % 1 % (0-3); EOS # 0.1 x10^3/uL (0.0-0.7); EOS % 1 % (0-3); HEMATOCRIT 44.3 % (36.0-47.0); HEMOGLOBIN 15.3 g/dL (12.0-15.5); LYMPH # 2.9 x10^3/uL (1.0-4.8); LYMPH % 19 % (24-48); MEAN CORPUSCULAR HEMOGLOBIN 32 pg (25-35); MEAN CORPUSCULAR HGB CONC 34 g/dL (31-37); MEAN CORPUSCULAR VOLUME 93 fL (79-100); MONO # 1.7 x10^3/uL (0.0-1.1); MONO % 11 % (0-9); NEUT # 10.9 x10^3/uL (1.8-7.7); NEUT % 69 % (31-73); PLATELET COUNT 426 x10^3/uL (140-400); RED BLOOD COUNT 4.76 x10^6/uL (3.50-5.40); RED CELL DISTRIBUTION WIDTH 13.5 % (11.5-14.5); WHITE BLOOD COUNT 15.8 x10^3/uL (4.0-11.0)
[2019-09-30 19:20] LABS: ALBUMIN 3.2 g/dL (3.4-5.0); ALBUMIN/GLOBULIN RATIO 0.8 (1.0-1.7); CREATININE 0.8 mg/dL (0.6-1.0); GFR 69.6; POTASSIUM 3.9 mmol/L (3.5-5.1); TOTAL BILIRUBIN 0.9 mg/dL (0.2-1.0); TOTAL PROTEIN 7.1 g/dL (6.4-8.2)
[2019-10-01] VITALS (12 sets, daily range): BP systolic 121–174; BP diastolic 64–88
[2019-10-01] MEDS: ACETAMINOPHEN 325 MG TABLET. PO PRN ×2 (02:03→09:16)
[2019-10-01 05:22] LABS: CHOLESTEROL/HDL RATIO 5.6
--- NOTE | 2019-10-01 06:33 | NUR ---
Patient noted to have periods of B/P 160's sbp, noted to have been when patient has ambulated to bsc, and patient has anxiety when b/p cuff begins to fill, "It hurts when that machine goes off..", possible r/t anticipated discomfort, as noted pressure better when asleep-134/64, monitoring.
[2019-10-01] MEDS: MAGNESIUM OXIDE 400 MG TABLET PO SCH ×3 (09:17→21:43)
[2019-10-01] MEDS: LORazepam 0.5 MG TABLET PO SCH ×2 (09:22→21:49)
[2019-10-01] MEDS: DIGOXIN 125 MCG TABLET. PO SCH (09:23)
[2019-10-01] MEDS: ONDANSETRON PF 4 MG/2 ML VIAL. IVP PRN (09:23)
[2019-10-01] MEDS ORDERED: SERTRALINE 50 MG TABLET. PO SCH (09:30)
--- NOTE | 2019-10-01 10:26 | NUR ---
SS following up with discharge planning. SS reviewed pt chart and discussed with pt RN. Pt is currently on room air. PT/OT ordered. Pt requesting to return to home when medically ready. SS will continue to follow for discharge planning.
--- NOTE | 2019-10-01 12:36 | PDOC ---
[facility] [facility] PROGRESS NOTE Chief Complaint Chief Complaint Partially occlusive M2 segment right middle cerebral artery thrombus. few areas of hyperdensity noted within the sulci of the right frontal lobe and right occipital lobe concerning for acute cerebral hemorrhage status post TPA Hypertension Admit to ICU Appreciate neuro recommendations, consider restarting statin medication that has the least amount of myopathy related side effects Neurosurgery consult Every 2 hour neurochecks Systolic blood pressure goals of 140-1 60 Continue telemetry monitoring Pending echo SCD for DVT prophylaxis Cardiac diet Full code Discussed with RN and MEGHA Dispo transfer to regular floor. Pending further neuro evaluation Critical care time spen of 32 minutes History of Present Illness History of Present Illness 79 year old female with a last known normal at 15:15 presents with slurred speech and left-sided facial droop. Patient denies any weakness in arms or legs or visual changes. Of note patient had a little bit of a headache over the last 2 days but has not had any today. Patient denies any fevers chills cough vomiting or diarrhea. Patient is also having little slurred speech. ED course: Patient received TPA approved neuro exam. CT head was repeated and did show some hyperdensities. Patient will be transferred to the ICU for close monitoring of her neuro exam. Patient seen and examined in the ED. She had reported NIH of 3 10/01/2019 Patient seen and examined bedside. Patient does continue to have subtle headache that is improved with Tylenol. NIH score of 0. Patient has described adverse effects with both atorvastatin and rosuvastatin. She does take rosuvastatin as an outpatient about 2 times per month. Mainly limited by her complaints with leg pain. Patient's chart, labs, images were reviewed and discussed with RN Vitals/I&O Vitals/I&O: Vital Signs Date Time Temp Pulse Resp B/P (MAP) Pulse Ox O2 Delivery O2 Flow Rate FiO2 10/01/19 09:23 79 149/82 10/01/19 08:00 97.7 22 99 Room Air 97.7 09/30/19 10:22 2.0 I & O 09/30/19 09/30/19 10/01/19 14:59 22:59 06:59 Intake Total 700 ml 300 ml Output Total 900 ml 825 ml Balance -200 ml -525 ml Physical Exam Physical Exam: GEN: No apparent distress. Alert and oriented HEENT: Normal cephalic, atraumatic, external auditory canals are patent EYES: Extraocular muscles are intact, pupil are equally round and reactive to light and accommodation MUSCULOSKELETAL: Well developed , well nourished, good range of motion ENDOCRINE: No thyromegaly was palpated LYMPHATICS: No cervical chain or axillary nodes were noted HEMATOPOIETIC: No bruising NECK: Supple, no JVD, no thyromegaly was noted LUNGS: Clear to auscultation in all lung manley without rhonchi or wheezing HEART: RRR, S!, S2 present. Peripheral pulses intact, no obvious murmurs noted ABDOMEN: Soft, nontender. Positive bowel sounds, no organomegaly, normal bowel sounds EXTREMITIES: Without clubbing, cyanosis, or edema. Pedal pulses intact. Negative Homans sign NEUROLOGIC: Normal speech and tone. A&O x 3, moves all extremities. Slight left lower facial droop PSYCHIATRIC: Normal affect, normal mood. Stable SKIN: No ulcerations or rashes, good skin turgor, no jaundice VASCULAR: Good capillary refill, neurovascular bundle appears to be intact Labs Labs: Laboratory Tests Test 09/30/19 19:00 10/01/19 04:20 White Blood Count 15.8 x10^3/uL (4.0-11.0) Red Blood Count 4.76 x10^6/uL (3.50-5.40) Hemoglobin 15.3 g/dL (12.0-15.5) Hematocrit 44.3 % (36.0-47.0) Mean Corpuscular Volume 93 fL (79-100) Mean Corpuscular Hemoglobin 32 pg (25-35) Mean Corpuscular Hemoglobin Concent 34 g/dL (31-37) Red Cell Distribution Width 13.5 % (11.5-14.5) Platelet Count 426 x10^3/uL (140-400) Neutrophils (%) (Auto) 69 % (31-73) Lymphocytes (%) (Auto) 19 % (24-48) Monocytes (%) (Auto) 11 % (0-9) Eosinophils (%) (Auto) 1 % (0-3) Basophils (%) (Auto) 1 % (0-3) Neutrophils # (Auto) 10.9 x10^3/uL (1.8-7.7) Lymphocytes # (Auto) 2.9 x10^3/uL (1.0-4.8) Monocytes # (Auto) 1.7 x10^3/uL (0.0-1.1) Eosinophils # (Auto) 0.1 x10^3/uL (0.0-0.7) Basophils # (Auto) 0.1 x10^3/uL (0.0-0.2) Sodium Level 135 mmol/L (136-145) Potassium Level 3.9 mmol/L (3.5-5.1) Chloride Level 98 mmol/L (98-107) Carbon Dioxide Level 31 mmol/L (21-32) Anion Gap 6 (6-14) Blood Urea Nitrogen 9 mg/dL (7-20) Creatinine 0.8 mg/dL (0.6-1.0) Estimated GFR (Cockcroft-Gault) 69.6 BUN/Creatinine Ratio 11 (6-20) Glucose Level 92 mg/dL (70-99) Calcium Level 9.0 mg/dL (8.5-10.1) Total Bilirubin 0.9 mg/dL (0.2-1.0) Aspartate Amino Transf (AST/SGOT) 22 U/L (15-37) Alanine Aminotransferase (ALT/SGPT) 40 U/L (14-59) Alkaline Phosphatase 119 U/L (46-116) Total Protein 7.1 g/dL (6.4-8.2) Albumin 3.2 g/dL (3.4-5.0) Albumin/Globulin Ratio 0.8 (1.0-1.7) Triglycerides Level 124 mg/dL (0-150) Cholesterol Level 242 mg/dL (0-200) LDL Cholesterol, Calculated 174 mg/dL (0-100) VLDL Cholesterol, Calculated 25 mg/dL (0-40) Non-HDL Cholesterol Calculated 199 mg/dL (0-129) HDL Cholesterol 43 mg/dL (40-60) Cholesterol/HDL Ratio 5.6 Assessment and Plan Assessmemt and Plan Problems Medical Problems: (1) Acute ischemic cerebrovascular accident (CVA) involving right middle cerebral artery territory Status: Acute Comment Review of Relevant I have reviewed the following items mike (where applicable) has been applied. Medications: Current Medications Medications (Trade) Dose Ordered Sig/Yolanda Route PRN Reason Start Time Stop Time Status Last Admin Dose Admin Ondansetron HCl (Zofran) 4 mg PRN Q6HRS PRN IVP NAUSEA/VOMITING 7/29/20 14:45 10/01/19 09:23 Acetaminophen (Tylenol) 650 mg PRN Q6HRS PRN PO pain 09/30/19 14:45 10/01/19 09:16 Lorazepam (Ativan) 0.5 mg BID PO 10/01/19 09:30 10/01/19 09:22 Digoxin (Lanoxin) 250 mcg DAILY PO 10/01/19 10:00 10/01/19 09:23 Justicifation of Admission Dx: Justifications for Admission: Justification of Admission Dx: Yes CAROLINA INFANTE MD Oct 01, 2019 12:36
--- NOTE | 2019-10-01 17:35 | PDOC ---
PROGRESS NOTES Assessment 1. Acute stroke involving right middle cerebral artery. She received a partial dosage of intravenous TPA. The medication needed to be aborted because she developed headache with a small amount of subarachnoid hemorrhage. The MRI confirmed the stroke more peripherally. The TPA was probably helpful in breaking up the major thrombus in the M2 segment. Her deficits have been improving daily. I am not seeing weakness in the left leg. I still see extinction of the left visual field to double simultaneous stimulation. Coordination is improving. 2. She has hyperlipidemia with a markedly elevated LDL cholesterol. She has not tolerated any of the statins. 3. She smokes tobacco daily. She reports that she is previously tried to use Chantix as well as Wellbutrin. She is quick to jump to the conclusion that a medication is provoking a side effect. Plan 1. I will obtain a follow-up CT scan of the head for tomorrow morning to make sure the subarachnoid hemorrhage is not expanding. 2. I would recommend her primary physician work on preauthorization for Repatha to try to address hyperlipidemia. The goal LDL cholesterol is less than 70. 3. We discussed that she needs to stop smoking. She asked about hypnosis as an option. This can certainly be helpful in certain individuals as can counseling. 4. At the present time she is not a candidate for aspirin for stroke prevention because of the subarachnoid hemorrhage provoked by the TPA. She did have a CT angiogram of the head and neck which did not reveal aneurysm. I would wait another 7 days before initiating aspirin 81 mg assuming that the CAT scan does not show any worsening. 5. I reviewed the occupational therapist note where they suggested snf following this discharge. She is improving rapidly so I think there is a possibility that she might be able to go home with outpatient therapy. This will depend on her functional status and stability. I would anticipate she will be ready for transfer or dismissal tomorrow. 6. I answered all of her many of questions. I wrote down her lipid profile. I explained why she was not able to receive a full dosage of intravenous TPA. We went over all test results. Subjective I am feeling okay. I was able to walk with the therapist with a gait belt. I did not have to use a walker or cane. I did pretty well. Objective Vital Signs Date Time Temp Pulse Resp B/P (MAP) Pulse Ox O2 Delivery O2 Flow Rate FiO2 7/30/20 15:00 98.1 76 16 142/69 (93) 95 Room Air 98.1 09/30/19 10:22 2.0 Intake and Output 10/01/19 07:00 Intake Total 1000 ml Output Total 1725 ml Balance -725 ml Intake Oral 1000 ml Output Urine Total 1725 ml # Voids 2 PHYSICAL EXAM She was alert, awake and cooperative. Speech was fluent and clear. She had a good fund of recent and remote knowledge. Attention and concentration was intact. She appeared well-groomed and well-nourished. She was well oriented. Examination of the cranial nerves revealed visual manley were full to confrontation except to double simultaneous stimulation when she did not see the left visual field. Extraocular movements were intact. The eyes were conjugate. Pupils were 4 mm. Facial sensation was intact bilaterally. The muscles of mastication and facial expression were symmetric. There was no delay of initiation of smile. Hearing was intact to finger rub. The palate arch symmetrically and the tongue was midline. Muscle bulk and tone was normal. There was no arm drift. Power was full and symmetric. Coordination testing with [id number], [id number], fine motor and rapid alternating movements was well performed. Sensory examination was intact to sharp and light touch. Review of Relevant I have reviewed the following items mike (where applicable) has been applied. Labs Laboratory Tests Test 09/30/19 19:00 10/01/19 04:20 White Blood Count 15.8 x10^3/uL (4.0-11.0) Red Blood Count 4.76 x10^6/uL (3.50-5.40) Hemoglobin 15.3 g/dL (12.0-15.5) Hematocrit 44.3 % (36.0-47.0) Mean Corpuscular Volume 93 fL (79-100) Mean Corpuscular Hemoglobin 32 pg (25-35) Mean Corpuscular Hemoglobin Concent 34 g/dL (31-37) Red Cell Distribution Width 13.5 % (11.5-14.5) Platelet Count 426 x10^3/uL (140-400) Neutrophils (%) (Auto) 69 % (31-73) Lymphocytes (%) (Auto) 19 % (24-48) Monocytes (%) (Auto) 11 % (0-9) Eosinophils (%) (Auto) 1 % (0-3) Basophils (%) (Auto) 1 % (0-3) Neutrophils # (Auto) 10.9 x10^3/uL (1.8-7.7) Lymphocytes # (Auto) 2.9 x10^3/uL (1.0-4.8) Monocytes # (Auto) 1.7 x10^3/uL (0.0-1.1) Eosinophils # (Auto) 0.1 x10^3/uL (0.0-0.7) Basophils # (Auto) 0.1 x10^3/uL (0.0-0.2) Sodium Level 135 mmol/L (136-145) Potassium Level 3.9 mmol/L (3.5-5.1) Chloride Level 98 mmol/L (98-107) Carbon Dioxide Level 31 mmol/L (21-32) Anion Gap 6 (6-14) Blood Urea Nitrogen 9 mg/dL (7-20) Creatinine 0.8 mg/dL (0.6-1.0) Estimated GFR (Cockcroft-Gault) 69.6 BUN/Creatinine Ratio 11 (6-20) Glucose Level 92 mg/dL (70-99) Calcium Level 9.0 mg/dL (8.5-10.1) Total Bilirubin 0.9 mg/dL (0.2-1.0) Aspartate Amino Transf (AST/SGOT) 22 U/L (15-37) Alanine Aminotransferase (ALT/SGPT) 40 U/L (14-59) Alkaline Phosphatase 119 U/L (46-116) Total Protein 7.1 g/dL (6.4-8.2) Albumin 3.2 g/dL (3.4-5.0) Albumin/Globulin Ratio 0.8 (1.0-1.7) Triglycerides Level 124 mg/dL (0-150) Cholesterol Level 242 mg/dL (0-200) LDL Cholesterol, Calculated 174 mg/dL (0-100) VLDL Cholesterol, Calculated 25 mg/dL (0-40) Non-HDL Cholesterol Calculated 199 mg/dL (0-129) HDL Cholesterol 43 mg/dL (40-60) Cholesterol/HDL Ratio 5.6 Laboratory Tests Test 09/30/19 19:00 10/01/19 04:20 White Blood Count 15.8 x10^3/uL (4.0-11.0) Red Blood Count 4.76 x10^6/uL (3.50-5.40) Hemoglobin 15.3 g/dL (12.0-15.5) Hematocrit 44.3 % (36.0-47.0) Mean Corpuscular Volume 93 fL (79-100) Mean Corpuscular Hemoglobin 32 pg (25-35) Mean Corpuscular Hemoglobin Concent 34 g/dL (31-37) Red Cell Distribution Width 13.5 % (11.5-14.5) Platelet Count 426 x10^3/uL (140-400) Neutrophils (%) (Auto) 69 % (31-73) Lymphocytes (%) (Auto) 19 % (24-48) Monocytes (%) (Auto) 11 % (0-9) Eosinophils (%) (Auto) 1 % (0-3) Basophils (%) (Auto) 1 % (0-3) Neutrophils # (Auto) 10.9 x10^3/uL (1.8-7.7) Lymphocytes # (Auto) 2.9 x10^3/uL (1.0-4.8) Monocytes # (Auto) 1.7 x10^3/uL (0.0-1.1) Eosinophils # (Auto) 0.1 x10^3/uL (0.0-0.7) Basophils # (Auto) 0.1 x10^3/uL (0.0-0.2) Sodium Level 135 mmol/L (136-145) Potassium Level 3.9 mmol/L (3.5-5.1) Chloride Level 98 mmol/L (98-107) Carbon Dioxide Level 31 mmol/L (21-32) Anion Gap 6 (6-14) Blood Urea Nitrogen 9 mg/dL (7-20) Creatinine 0.8 mg/dL (0.6-1.0) Estimated GFR (Cockcroft-Gault) 69.6 BUN/Creatinine Ratio 11 (6-20) Glucose Level 92 mg/dL (70-99) Calcium Level 9.0 mg/dL (8.5-10.1) Total Bilirubin 0.9 mg/dL (0.2-1.0) Aspartate Amino Transf (AST/SGOT) 22 U/L (15-37) Alanine Aminotransferase (ALT/SGPT) 40 U/L (14-59) Alkaline Phosphatase 119 U/L (46-116) Total Protein 7.1 g/dL (6.4-8.2) Albumin 3.2 g/dL (3.4-5.0) Albumin/Globulin Ratio 0.8 (1.0-1.7) Triglycerides Level 124 mg/dL (0-150) Cholesterol Level 242 mg/dL (0-200) LDL Cholesterol, Calculated 174 mg/dL (0-100) VLDL Cholesterol, Calculated 25 mg/dL (0-40) Non-HDL Cholesterol Calculated 199 mg/dL (0-129) HDL Cholesterol 43 mg/dL (40-60) Cholesterol/HDL Ratio 5.6 Medications Current Medications Alteplase, Recombinant 6.2 ml @ 372 mls/hr 1X ONCE IV Last administered on 09/29/19at 17:17; Start 09/29/19 at 17:15; Stop 09/29/19 at 17:16; Status DC Alteplase, Recombinant 55.4 ml @ 55.4 mls/hr Q1H IV Last administered on 09/29/19at 17:18; Start 09/29/19 at 17:15; Stop 09/29/19 at 18:14; Status DC Sodium Chloride 50 ml @ 200 mls/hr 1X ONCE IV ; Start 09/29/19 at 17:15; Stop 09/29/19 at 17:29; Status DC Ondansetron HCl (Zofran) 4 mg STK-MED ONCE .ROUTE ; Start 09/29/19 at 17:05; Stop 09/29/19 at 17:05; Status DC Ondansetron HCl (Zofran) 4 mg STK-MED ONCE .ROUTE ; Start 09/29/19 at 17:05; Stop 09/29/19 at 17:06; Status DC Ondansetron HCl (Zofran) 4 mg 1X ONCE IVP Last administered on 09/29/19at 17:20; Start 09/29/19 at 17:15; Stop 09/29/19 at 17:16; Status DC Iohexol (Omnipaque 350 Mg/ml) 75 ml 1X ONCE IV ; Start 09/29/19 at 17:15; Stop 09/29/19 at 17:19; Status DC Info (CONTRAST GIVEN -- Rx MONITORING) 1 each PRN DAILY PRN MC SEE COMMENTS; Start 09/29/19 at 17:30; Stop 10/01/19 at 17:29 Ondansetron HCl (Zofran) 4 mg PRN Q6HRS PRN IVP NAUSEA/VOMITING Last administered on 10/01/19at 09:23; Start 09/30/19 at 14:45 Acetaminophen (Tylenol) 650 mg PRN Q6HRS PRN PEG MILD PAIN / TEMP > 100.3'F; Start 09/30/19 at 14:45; Status UNV Acetaminophen (Tylenol) 650 mg PRN Q6HRS PRN PO pain Last administered on 10/01/19at 09:16; Start 09/30/19 at 14:45 Lorazepam (Ativan) 0.5 mg BID PO Last administered on 10/01/19at 09:22; Start 10/01/19 at 09:30 Sertraline HCl (Zoloft) 50 mg DAILY PO ; Start 10/01/19 at 09:30; Status Cancel Digoxin (Lanoxin) 250 mcg DAILY PO Last administered on 10/01/19at 09:23; Start 10/01/19 at 10:00 Magnesium Oxide (Magnesium Oxide) 400 mg DAILY PO ; Start 10/01/19 at 09:30; Stop 10/01/19 at 15:24; Status DC Sertraline HCl (Zoloft) 50 mg QHS PO ; Start 10/01/19 at 21:00 Atorvastatin Calcium (Lipitor) 10 mg QHS PO ; Start 10/01/19 at 21:00 Magnesium Oxide (Magnesium Oxide) 400 mg HS PO ; Start 10/01/19 at 21:00 Active Scripts Active Reported Magnesium (Magnesium Oxide) 400 Mg Capsule 1 Cap PO DAILY 30 Days Zyrtec-D Tablet (Cetirizine Hcl/Pseudoephedrine) 1 Each Tab.er.12h 1 Tab PO BID Ibuprofen 400 Mg Tablet 400 Mg PO PRN Q6HRS PRN Ginkgo Biloba 120 Mg Tablet 2 Tab PO DAILY 30 Days Green Tea Extract (Green Tea [place] Extract) 150 Mg Capsule 150 Mg PO DAILY Dialyvite 800 Plus D Wafer (Vit B Comp&C/Folic Acid/Vit D3) 1 Each Tab.chew 1 Tab PO DAILY 30 Days Ostera Tablet (Vit D3 & K/[place] Hcl/Hops) 1 Each Tablet 1 Each PO DAILY Ativan (Lorazepam) 0.5 Mg Tablet 0.5 Mg PO BID Crestor (Rosuvastatin Calcium) 5 Mg Tablet 1 Tab PO 2 TIMES PER WEEK Zoloft (Sertraline Hcl) 50 Mg Tablet 1 Tab PO DAILY Atenolol 50 Mg Tablet 1 Tab PO DAILY Digoxin 250 Mcg Tablet 250 Mcg PO DAILY Sertraline Hcl 50 Mg Tablet 50 Mg PO Lorazepam 0.5 Mg Tablet 0.5 Mg PO Crestor (Rosuvastatin Calcium) 5 Mg Tablet 5 Mg PO Digoxin 0.25 Mg/5 Ml Solution 0.25 Mg PO Atenolol 50 Mg Tablet 50 Mg PO Vitals/I & O Vital Sign - Last 24 Hours 09/30/19 09/30/19 09/30/19 09/30/19 18:17 19:30 20:00 20:30 Temp 98.6 98.6 Pulse 77 72 72 Resp 24 24 B/P (MAP) 163/82 (109) 166/82 (110) 175/64 (101) Pulse Ox 98 99 98 O2 Delivery Room Air Room Air Room Air Room Air 09/30/19 09/30/19 09/30/19 10/01/19 22:00 23:00 23:31 00:16 Temp 98.2 98.2 Pulse 71 69 72 Resp 20 B/P (MAP) 150/72 (98) 150/72 (98) 168/80 (109) Pulse Ox 95 95 95 O2 Delivery Room Air Room Air Room Air Room Air 10/01/19 10/01/19 10/01/19 10/01/19 02:15 02:16 03:14 05:00 Temp 98.2 98.2 Pulse 72 78 70 65 Resp 24 20 16 B/P (MAP) 174/87 (116) 168/82 (110) 168/82 (110) 134/64 (87) Pulse Ox 94 98 96 95 O2 Delivery Room Air Room Air Room Air 10/01/19 10/01/19 10/01/19 10/01/19 06:00 07:00 08:00 08:00 Temp 97.7 97.7 Pulse 72 74 Resp 20 28 22 B/P (MAP) 164/84 (110) 162/88 (112) 149/82 (104) Pulse Ox 95 99 99 O2 Delivery Room Air Room Air Room Air Room Air 10/01/19 10/01/19 10/01/19 09:23 11:00 15:00 Temp 98.1 98.1 98.1 98.1 Pulse 79 76 76 Resp 18 16 B/P (MAP) 149/82 144/78 (100) 142/69 (93) Pulse Ox 98 95 O2 Delivery Room Air Room Air Intake and Output 09/30/19 09/30/19 10/01/19 15:00 23:00 07:00 Intake Total 700 ml 300 ml Output Total 900 ml 825 ml Balance -200 ml -525 ml Justicifation of Admission Dx: Justifications for Admission: Justification of Admission Dx: Yes EDUARD BRENNAN MD Oct 01, 2019 17:35
[2019-10-01] MEDS ORDERED: ATORVASTATIN CALCIUM 10 MG TABLET. PO SCH (21:00)
[2019-10-01] MEDS: SERTRALINE 50 MG TABLET. PO SCH (21:44)
[2019-10-02 00:09] LABS: HEMOGLOBIN A1C 5.5 % (4.8-5.6)
[2019-10-02 03:00] VITALS: BP 158/85
[2019-10-02 07:40] VITALS: BP 110/79
[2019-10-02] MEDS: DIGOXIN 125 MCG TABLET. PO SCH (09:06)
[2019-10-02] MEDS: ACETAMINOPHEN 325 MG TABLET. PO PRN (09:06)
[2019-10-02] MEDS: LORazepam 0.5 MG TABLET PO SCH ×2 (09:07→22:14)
[2019-10-02] MEDS: ONDANSETRON PF 4 MG/2 ML VIAL. IVP PRN (09:09)
--- NOTE | 2019-10-02 10:19 | EKG ---
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
[2019-10-02 11:24] VITALS: BP 131/69
--- NOTE | 2019-10-02 11:48 | PDOC ---
[facility] PROGRESS NOTE Chief Complaint Chief Complaint Partially occlusive M2 segment right middle cerebral artery thrombus. Hyperdensity noted within the sulci of the right frontal lobe and right occipital lobe concerning for acute cerebral hemorrhage status post TPA Hypertension Afib HLD History of Present Illness History of Present Illness 10/02/2019 Patient seen and examined Cardiac monitoring with atrial fibrillation Sitting up in bed in NAD Chart reviewed Discussed with RN 79 year old female with a last known normal at 15:15 presents with slurred speech and left-sided facial droop. Patient denies any weakness in arms or legs or visual changes. Of note patient had a little bit of a headache over the last 2 days but has not had any today. Patient denies any fevers chills cough vomiting or diarrhea. Patient is also having little slurred speech. ED course: Patient received TPA approved neuro exam. CT head was repeated and did show some hyperdensities. Patient will be transferred to the ICU for close monitoring of her neuro exam.Patient seen and examined in the ED. She had reported NIH of 3. 10/01/2019 Patient seen and examined bedside. Patient does continue to have subtle headache that is improved with Tylenol. NIH score of 0. Patient has described adverse effects with both atorvastatin and rosuvastatin. She does take rosuvastatin as an outpatient about 2 times per month. Mainly limited by her complaints with leg pain. Patient's chart, labs, images were reviewed and discussed with RN Vitals/I&O Vitals/I&O: Vital Signs Date Time Temp Pulse Resp B/P (MAP) Pulse Ox O2 Delivery O2 Flow Rate FiO2 10/02/19 11:24 98.1 93 16 131/69 (89) 96 Room Air 98.1 I & O 10/01/19 10/01/19 10/02/19 15:00 23:00 07:00 Intake Total 480 ml 1000 ml Output Total 600 ml Balance -120 ml 1000 ml Physical Exam Physical Exam: GEN: No apparent distress. Alert and oriented HEENT: Normal cephalic, atraumatic, external auditory canals are patent EYES: Extraocular muscles are intact, pupil are equally round and reactive to light and accommodation MUSCULOSKELETAL: Well developed , well nourished, good range of motion ENDOCRINE: No thyromegaly was palpated LYMPHATICS: No cervical chain or axillary nodes were noted HEMATOPOIETIC: No bruising NECK: Supple, no JVD, no thyromegaly was noted LUNGS: Clear to auscultation in all lung manley without rhonchi or wheezing HEART: RRR, S!, S2 present. Peripheral pulses intact, no obvious murmurs noted ABDOMEN: Soft, nontender. Positive bowel sounds, no organomegaly, normal bowel sounds EXTREMITIES: Without clubbing, cyanosis, or edema. Pedal pulses intact. Negative Homans sign NEUROLOGIC: Normal speech and tone. A&O x 3, moves all extremities. Slight left lower facial droop PSYCHIATRIC: Normal affect, normal mood. Stable SKIN: No ulcerations or rashes, good skin turgor, no jaundice VASCULAR: Good capillary refill, neurovascular bundle appears to be intact General: Alert, Oriented X3, Cooperative, No acute distress Heart: Other (Afib) Lungs: Clear Abdomen: No tenderness Extremities: No tenderness/swelling Skin: No rashes, No significant lesion Review of Systems Review of Systems: Pertinent as per HPI, otherwise 10 point review of systems is negative. Assessment and Plan Assessmemt and Plan Problems Medical Problems: (1) Acute ischemic cerebrovascular accident (CVA) involving right middle cerebral artery territory Status: Acute ASSESSMENT Partially occlusive M2 segment right middle cerebral artery thrombus Hyperdensity noted within the sulci of the right frontal lobe and right occipital lobe concerning for acute cerebral hemorrhage status post TPA Hypertension Afib HLD PLAN Cardiac monitoring Review repeat CT head when complete Appreciate subspecialist input Neuro checks every 2 hours Home meds PT/OT/ST Trend labs Cardiac diet Discharge when approved by neurology/neurosurgery Comment Review of Relevant I have reviewed the following items mike (where applicable) has been applied. Medications: Current Medications Medications (Trade) Dose Ordered Sig/Yolanda Route PRN Reason Start Time Stop Time Status Last Admin Dose Admin Sertraline HCl (Zoloft) 50 mg QHS PO 10/01/19 21:00 10/01/19 21:44 Atorvastatin Calcium (Lipitor) 10 mg QHS PO 10/01/19 21:00 10/01/19 21:43 Magnesium Oxide (Magnesium Oxide) 400 mg HS PO 10/01/19 21:00 10/01/19 21:43 Justicifation of Admission Dx: Justifications for Admission: Justification of Admission Dx: Yes IBIS HOLCOMB III DO Oct 02, 2019 11:47
--- NOTE | 2019-10-02 13:35 | PDOC2 ---
EMORY NEWBERRY ADMISSION DISCHARGE RN 10/02/19 1335: CARDIAC CONSULT DATE OF CONSULT Date of Consult DATE: 10/02/19 TIME: 13:21 REASON FOR CONSULT Reason for Consult: afib REFERRING PHYSICIAN Referring Physician: Krystle SOURCE Source: Chart review, Patient HISTORY OF PRESENT ILLNESS HISTORY OF PRESENT ILLNESS This is a pleasant 79 yo female admitted for neuro symptoms. Reports of slurred speech noticed by her daughter while talking to her on the phone and left facial droop. No other focal neurosymptoms. She was then treated with tPA and was partially infused only due to development of headache and was noted with SAH with further imaging. She was in SR upon admission but later noted with AFIB with RVR as an inpt. 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 She does not take any ASA at home. She also has statin intolerant hence low dose crestor at home. PAST MEDICAL HISTORY Cardiovascular: Hyperlipidemia, Other (PAD; hx of PSVT hence digoxin) Heme/Onc: Cancer (bladder CA and nonhodkins lymphoma treated with chemo) Psych: Anxiety Musculoskeletal: Osteoarthritis PAST SURGICAL HISTORY Past Surgical History: Cataract Removal, Other (splencetomy/bladder tumor resection) FAMILY HISTORY Family History: Coronary Artery Disease (mother) SOCIAL HISTORY Smoke: <1 pack per day ALCOHOL: none Drugs: None Lives: with Family CURRENT MEDICATIONS CURRENT MEDICATIONS Current Medications Medications (Trade) Dose Ordered Sig/Yolanda Route PRN Reason Start Time Stop Time Status Last Admin Dose Admin Sertraline HCl (Zoloft) 50 mg QHS PO 10/01/19 21:00 10/01/19 21:44 Atorvastatin Calcium (Lipitor) 10 mg QHS PO 10/01/19 21:00 10/01/19 21:43 Magnesium Oxide (Magnesium Oxide) 400 mg HS PO 10/01/19 21:00 10/01/19 21:43 ALLERGIES ALLERGIES: Coded Allergies: codeine (Verified Allergy, Intermediate, 06/15/13) ROS Review of System 14 point ROS evaluated with pertinent positives noted per HPI PHYSICAL EXAM General: Alert, Oriented X3, Cooperative, No acute distress HEENT: Atraumatic, Mucous membr. moist/pink Lungs: Clear to auscultation, Normal air movement Heart: Other (AIB RVR) Abdomen: Soft, No tenderness Extremities: No cyanosis, No edema Skin: No breakdown, No significant lesion Neuro: Normal speech, Sensation intact Psych/Mental Status: Mental status NL, Mood NL MUSCULOSKELETAL: Osteoarthritic changes both hands VITALS/I&O VITALS/I&O: Vital Signs Date Time Temp Pulse Resp B/P (MAP) Pulse Ox O2 Delivery O2 Flow Rate FiO2 10/02/19 11:24 98.1 93 16 131/69 (89) 96 Room Air 98.1 I & O 10/01/19 10/01/19 10/02/19 15:00 23:00 07:00 Intake Total 480 ml 1000 ml Output Total 600 ml Balance -120 ml 1000 ml ECHOCARDIOGRAM ECHOCARDIOGRAM <Conclusion> The left ventricular systolic function is normal and the ejection fraction is within normal range. The Ejection Fraction is 55-60%. There is normal LV segmental wall motion. Doppler and Color Flow revealed mild aortic regurgitation. Technically difficult study DATE: 09/30/19 0947 STRESS TEST STRESS TEST Conclusion 1. Regadenoson cardioisotope stress test did not show any evidence of ischemia or infarct. 2. Normal left ventricular systolic function with ejection fraction calculated at 87%. 3. Low risk for cardiac events. DATE: 06/11/17 1111 ASSESSMENT/PLAN ASSESSMENT/PLAN 1. Acute right MCA CVA: s/P partial tPA aborted due to FAUSTIN development: symptoms appears to be resolved (facial droop and dysarthria) 2. Small SAH: post tPA 3. HTN; controlled 4. COPD with continued tobaccoism 5. PAFIB with RVR: presently in RVR. New finding. 6. HLP: not on goal Recommendations 1. Antiplatelet therapy on hold due to SAH. Recommend anticoagulation with eliquis for stroke prevention once clear with neurology 2. Continue home po digoxin. IV lopressor x1. Will place on metoprolol 25 mg po bid lower dose than her home atenolol by equivalence. 3. If she does convert to SR then will consider starting on antiarrhythmic therapy. 4. Could consider PCSK9i. She takes low dose crestor at home may titrate up if pt is willing only on and Saturday 5. Smoking cessation SHAHID CASTRO MD 10/03/19 1055: CARDIAC CONSULT ASSESSMENT/PLAN ASSESSMENT/PLAN Late entry for 10/02/2019 Pt. seen and examined. 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 Supportive care. Thanks EMORY NEWBERRY APRN Oct 02, 2019 13:35 SHAHID CASTRO MD Oct 03, 2019 10:55
[2019-10-02] MEDS ORDERED: METOPROLOL TARTRATE 5 MG/5 ML VIAL. IVP ONE (14:00)
--- NOTE | 2019-10-02 14:17 | RAD ---
CT HEAD WO CONTRAST History: Reason: follow up stroke and subarachnoid hemorrhage status post intravenous TPA / Spl. Instructions: / History: Comparison: September 29, 2019 Technique: Noncontrast CT imaging was performed of the head. Exposure: One or more of the following individualized dose reduction techniques were utilized for this examination: 1. Automated exposure control 2. Adjustment of the mA and/or kV according to patient size 3. Use of iterative reconstruction technique. Findings: Decreased right posterior temporal/parietal region subarachnoid hemorrhage. Resolved previously seen hyperdensity within the right frontal region. No new acute hemorrhage. No hydrocephalus. Evolving right cerebral hemispheric infarcts. Imaged orbits are unremarkable. Desiccation of the left maxillary sinus. Increased density material within the left maxillary sinus, may indicate inspissated secretions or fungal colonization. Partial opacification of ethmoid air cells. Mastoid air cells are clear. TMJ arthropathy. No acute calvarial fracture. Impression: 1. Decreased right posterior temporal/parietal subarachnoid hemorrhage. 2. Evolving right cerebral hemispheric infarcts. 3. Left maxillary sinus disease. Electronically signed by: Ramana Gonzales DO (10/02/2019 2:14 PM) [facility]
[2019-10-02] MEDS: METOPROLOL TART IMMED RELEASE 25 MG TABLET. PO SCH ×2 (15:00→18:19)
[2019-10-02 15:15] VITALS: BP 130/67
--- NOTE | 2019-10-02 16:18 | NUR ---
Non administered patients 1500 dose of po Metoprolol due to patient receiving IV metoprolol prior to the po order. Will continue to monitor patient.
--- NOTE | 2019-10-02 16:38 | NUR ---
SW following. Spoke with RN and reviewed chart. Spoke with Dr. Dalton. Pt not ready for discharge. Pt will return home with spouse when stable. Pt on room air. Pt on oral medications and IV Zofran. PT recommendation is for out-patient PT. MEGHA obtained script from Dr. Dalton and it is on the chart for pt at discharge. MEGHA did fax script and other clinicals to the out-patient therapy department, [id number]. No further MEGHA needs at this time. Addendum: 10/02/19 at 1643 by BLAKE [place] MEGHA confirmed fax was received.
[2019-10-02 19:00] VITALS: BP 130/87
[2019-10-02] MEDS ORDERED: ATORVASTATIN CALCIUM 20 MG TABLET PO SCH ×2 (21:00)
--- NOTE | 2019-10-02 21:08 | PDOC ---
PROGRESS NOTES Assessment 1. 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 She did have some subarachnoid hemorrhage as a consequence. The CT scan of the brain performed October 02, 2019 revealed improvement in the subarachnoid hemorrhage. Her neurologic examination continues to improve daily. Today she was no longer having extinction in the left visual field to double simultaneous stimulation. Her gait was steady. Movements were symmetric. 2. She had an episode of atrial fibrillation on telemetry monitoring. This has delayed her discharge because of the initiation of metoprolol. I am glad we saw this as this is probably why she had the stroke from a cardioembolic event. 3. She has hyperlipidemia with a marked elevated LDL cholesterol. I feel she still needs to consider Repatha as she has not tolerated the statins. I will l eave this to the discretion of her primary care physician or room attendant. 4. She appears to have some cognitive changes with respect to retention of information and memory. There may be an underlying dementia. Plan 1. She may be dismissed home from a neurologic perspective when medically stable. She was kept overnight to keep an eye on the blood pressure with the initiation of metoprolol. She may initiate an anticoagulant in another 7 days. She believes she has a cystoscopy with potential bladder tumor removal in about 8 or 9 days. If this is the case then I would probably not initiate anticoagulation until after the procedure. We discussed anticoagulation at length. 2. She still needs to discontinue smoking. 3. I would recommend neurologic follow-up with Dr. Lyman to evaluate for underlying dementia when she has recovered from the stroke. Subjective I feel just fine. I cannot believe I had atrial fibrillation and I cannot even feel it. Do you think I will get to go home tomorrow? Objective Vital Signs Date Time Temp Pulse Resp B/P (MAP) Pulse Ox O2 Delivery O2 Flow Rate FiO2 10/02/19 18:19 93 113/68 10/02/19 15:15 98.1 16 97 Room Air 98.1 Intake and Output 10/02/19 07:00 Intake Total 1480 ml Output Total 600 ml Balance 880 ml Intake Oral 1480 ml Output Urine Total 600 ml # Voids 6 # Bowel Movements 1 PHYSICAL EXAM She was alert, awake and cooperative. Speech was fluent and clear. She had a fair fund of recent and remote knowledge. Attention and concentration was intact. She had a tendency to ask questions after the answer had just been given in great detail. Examination of the cranial nerves revealed that she no longer had loss of visual field to double simultaneous stimulation. The eyes were conjugate and face symmetric. Movements were symmetric and well coordinated. Gait was steady. Review of Relevant I have reviewed the following items mike (where applicable) has been applied. Labs Laboratory Tests Test 10/01/19 04:20 Triglycerides Level 124 mg/dL (0-150) Cholesterol Level 242 mg/dL (0-200) LDL Cholesterol, Calculated 174 mg/dL (0-100) VLDL Cholesterol, Calculated 25 mg/dL (0-40) Non-HDL Cholesterol Calculated 199 mg/dL (0-129) HDL Cholesterol 43 mg/dL (40-60) Cholesterol/HDL Ratio 5.6 Medications Current Medications Alteplase, Recombinant 6.2 ml @ 372 mls/hr 1X ONCE IV Last administered on 09/29/19at 17:17; Start 09/29/19 at 17:15; Stop 09/29/19 at 17:16; Status DC Alteplase, Recombinant 55.4 ml @ 55.4 mls/hr Q1H IV Last administered on 09/29/19at 17:18; Start 09/29/19 at 17:15; Stop 09/29/19 at 18:14; Status DC Sodium Chloride 50 ml @ 200 mls/hr 1X ONCE IV ; Start 09/29/19 at 17:15; Stop 09/29/19 at 17:29; Status DC Ondansetron HCl (Zofran) 4 mg STK-MED ONCE .ROUTE ; Start 09/29/19 at 17:05; Stop 09/29/19 at 17:05; Status DC Ondansetron HCl (Zofran) 4 mg STK-MED ONCE .ROUTE ; Start 09/29/19 at 17:05; Stop 09/29/19 at 17:06; Status DC Ondansetron HCl (Zofran) 4 mg 1X ONCE IVP Last administered on 09/29/19at 17:20; Start 09/29/19 at 17:15; Stop 09/29/19 at 17:16; Status DC Iohexol (Omnipaque 350 Mg/ml) 75 ml 1X ONCE IV ; Start 09/29/19 at 17:15; Stop 09/29/19 at 17:19; Status DC Info (CONTRAST GIVEN -- Rx MONITORING) 1 each PRN DAILY PRN MC SEE COMMENTS; Start 09/29/19 at 17:30; Stop 10/01/19 at 17:29; Status DC Ondansetron HCl (Zofran) 4 mg PRN Q6HRS PRN IVP NAUSEA/VOMITING Last administered on 10/02/19at 09:09; Start 09/30/19 at 14:45 Acetaminophen (Tylenol) 650 mg PRN Q6HRS PRN PEG MILD PAIN / TEMP > 100.3'F; Start 09/30/19 at 14:45; Status UNV Acetaminophen (Tylenol) 650 mg PRN Q6HRS PRN PO pain Last administered on 10/02/19at 09:06; Start 09/30/19 at 14:45 Lorazepam (Ativan) 0.5 mg BID PO Last administered on 10/02/19at 09:07; Start 10/01/19 at 09:30 Sertraline HCl (Zoloft) 50 mg DAILY PO ; Start 10/01/19 at 09:30; Status Cancel Digoxin (Lanoxin) 250 mcg DAILY PO Last administered on 10/02/19at 09:06; Start 10/01/19 at 10:00 Magnesium Oxide (Magnesium Oxide) 400 mg DAILY PO ; Start 10/01/19 at 09:30; Stop 10/01/19 at 15:24; Status DC Sertraline HCl (Zoloft) 50 mg QHS PO Last administered on 10/01/19at 21:44; Start 10/01/19 at 21:00 Atorvastatin Calcium (Lipitor) 10 mg QHS PO Last administered on 10/01/19at 21:43; Start 10/01/19 at 21:00; Stop 10/02/19 at 13:27; Status DC Magnesium Oxide (Magnesium Oxide) 400 mg HS PO Last administered on 10/01/19at 21:43; Start 10/01/19 at 21:00 Atorvastatin Calcium (Lipitor) 20 mg QHS PO ; Start 10/02/19 at 21:00; Stop 10/02/19 at 14:53; Status DC Metoprolol Tartrate (Lopressor Vial) 5 mg 1X ONCE IVP Last administered on 10/02/19at 14:38; Start 10/02/19 at 14:00; Stop 10/02/19 at 14:01; Status DC Metoprolol Tartrate (Lopressor) 25 mg BID PO Last administered on 10/02/19at 18:19; Start 10/02/19 at 15:00 Atorvastatin Calcium (Lipitor) 10 mg QHS PO ; Start 10/02/19 at 21:00 Active Scripts Active Reported Magnesium (Magnesium Oxide) 400 Mg Capsule 1 Cap PO DAILY 30 Days Zyrtec-D Tablet (Cetirizine Hcl/Pseudoephedrine) 1 Each Tab.er.12h 1 Tab PO BID Ibuprofen 400 Mg Tablet 400 Mg PO PRN Q6HRS PRN Ginkgo Biloba 120 Mg Tablet 2 Tab PO DAILY 30 Days Green Tea Extract (Green Tea [place] Extract) 150 Mg Capsule 150 Mg PO DAILY Dialyvite 800 Plus D Wafer (Vit B Comp&C/Folic Acid/Vit D3) 1 Each Tab.chew 1 Tab PO DAILY 30 Days Ostera Tablet (Vit D3 & K/Berberine Hcl/Hops) 1 Each Tablet 1 Each PO DAILY Ativan (Lorazepam) 0.5 Mg Tablet 0.5 Mg PO BID Crestor (Rosuvastatin Calcium) 5 Mg Tablet 1 Tab PO 2 TIMES PER WEEK Zoloft (Sertraline Hcl) 50 Mg Tablet 1 Tab PO DAILY Atenolol 50 Mg Tablet 1 Tab PO DAILY Digoxin 250 Mcg Tablet 250 Mcg PO DAILY Sertraline Hcl 50 Mg Tablet 50 Mg PO Lorazepam 0.5 Mg Tablet 0.5 Mg PO Crestor (Rosuvastatin Calcium) 5 Mg Tablet 5 Mg PO Digoxin 0.25 Mg/5 Ml Solution 0.25 Mg PO Atenolol 50 Mg Tablet 50 Mg PO Vitals/I & O Vital Sign - Last 24 Hours 10/01/19 10/02/19 10/02/19 10/02/19 23:00 03:00 07:40 08:10 Temp 97.8 98.5 98.2 97.8 98.5 98.2 Pulse 84 77 107 Resp 18 16 16 B/P (MAP) 121/75 (90) 158/85 (109) 110/79 (89) Pulse Ox 95 94 94 O2 Delivery Room Air Room Air 10/02/19 10/02/19 10/02/19 10/02/19 09:06 11:24 14:38 15:00 Temp 98.1 98.1 Pulse 107 93 93 68 Resp 16 B/P (MAP) 110/79 131/69 (89) 121/65 Pulse Ox 96 O2 Delivery Room Air 10/02/19 10/02/19 15:15 18:19 Temp 98.1 98.1 Pulse 89 93 Resp 16 B/P (MAP) 130/67 (88) 113/68 Pulse Ox 97 O2 Delivery Room Air Intake and Output 0 10/01/19 10/01/19 10/02/19 15:00 23:00 07:00 Intake Total 480 ml 1000 ml Output Total 600 ml Balance -120 ml 1000 ml Justicifation of Admission Dx: Justifications for Admission: Justification of Admission Dx: Yes EDUARD BRENNAN MD Oct 02, 2019 21:08
[2019-10-02] MEDS: SERTRALINE 50 MG TABLET. PO SCH (22:14)
[2019-10-02] MEDS: MAGNESIUM OXIDE 400 MG TABLET PO SCH (22:15)
[2019-10-02 23:00] VITALS: BP 135/85
[2019-10-03 03:00] VITALS: BP 135/80
[2019-10-03 07:00] VITALS: BP 124/68
[2019-10-03 08:25] VITALS: BP 124/68
[2019-10-03] MEDS: DIGOXIN 125 MCG TABLET. PO SCH (08:25)
[2019-10-03] MEDS: METOPROLOL TART IMMED RELEASE 25 MG TABLET. PO SCH (08:25)
[2019-10-03] MEDS: LORazepam 0.5 MG TABLET PO SCH (08:26)
[2019-10-03] MEDS ORDERED: METO25TA4 PO (09:22)
[2019-10-03] MEDS ORDERED: APIX2.5T PO (09:25)
[2019-10-03] MEDS: ACETAMINOPHEN 325 MG TABLET. PO PRN (10:35)
--- NOTE | 2019-10-03 11:23 | SNU/HH DC ---
DISCHARGE WITH HOME HEALTH DISCHARGE INFORMATION: Final Diagnosis: Problems Medical Problems: (1) Acute ischemic cerebrovascular accident (CVA) involving right middle cerebral artery territory Status: Acute Condition on Discharge: Stable CODE STATUS: Code Status: Full HOME HEALTH: Face to Face: I certify this patient is under my care and that I, or a nurse practitioner or physician's access services assistant working with me, had a face to face encounter that meets the physician face to face encounter requirements with this patient on []. Medical Complications: CVA RN For Eval/Treatment: Yes Physical Therapy For: Evalulation/Treatment Occupational Therapy For: Evaluation/Treatment Speech Language Pathology For: Evaluation/Treatment Home Health Aide For: Self-care COPYRIGHT CLERK For: Community Resources Pt Meets Homebound Status: Poor coordination w/ amb. POST DISCHARGE ORDERS: Activity Instructions for Disc: No restrictions, Resume previous activity, Activity as tolerated Weight Bearing Status after Di: No restrictions, Full weight bearing, As tolerated DIET AFTER DISCHARGE: Cardiac Wound/Incision Care: No wound care needed CHECKS AFTER DISCHARGE: Checks after discharge: Check blood press - daily, Check your Temp as needed FOLLOW-UP: Follow up with: [facility] ([phone]) CALL SATURDAY Follow Up With: PRIMARY CARE PROVIDER IN 1-2 WEEKS TREATMENT/EQUIPMENT ORDERS: Adaptive Equipment Issued: None CERTIFICATION STATEMENT: Certification Statement: Certification Statement: Based on the above finding, I certify that this patient is confined to the home and needs intermittent usp care, physical therapy and/or speech therapy, or continues to need occupational therapy.~ This patient is under my care, and I have initiated the establishment of the plan of care.~ This patient will be followed by myself or a community physician who will periodically review the plan of care. Home Meds Active Scripts Apixaban (ELIQUIS) 2.5 Mg Tablet, 2.5 MG PO BID for afib, #60 TAB do not start until 10/10/19 Prov:JOSE MCGILL MD 10/03/19 Metoprolol Tartrate (METOPROLOL TARTRATE) 25 Mg Tablet, 25 MG PO BID for afib, #60 TAB 1 Refill Prov:JOSE MCGILL MD 10/03/19 Reported Medications Magnesium Oxide (MAGNESIUM) 400 Mg Capsule, 1 CAP PO DAILY for supplement for 30 Days, #30 CAP 0 Refills 09/29/19 Cetirizine Hcl/Pseudoephedrine (ZYRTEC-D TABLET) 1 Each Tab.er.12h, 1 TAB PO BID for allergy, #30 TAB 09/29/19 Ibuprofen (IBUPROFEN) 400 Mg Tablet, 400 MG PO PRN Q6HRS PRN for INFLAMMATION, TAB 09/29/19 Ginkgo Biloba (GINKGO BILOBA) 120 Mg Tablet, 2 TAB PO DAILY for supplement for 30 Days, #60 TAB 0 Refills 09/29/19 Green Tea [place] Extract (Green Tea Extract) 150 Mg Capsule, 150 MG PO DAILY for supplement, CAP 09/29/19 Vit B Comp&C/Folic Acid/Vit D3 (Dialyvite 800 Plus D Wafer) 1 Each Tab.chew, 1 TAB PO DAILY for supplement for 30 Days, #30 TAB 0 Refills 09/29/19 Vit D3 & K/Berberine Hcl/Hops (OSTERA TABLET) 1 Each Tablet, 1 EACH PO DAILY for suppelment', TAB 09/29/19 Rosuvastatin Calcium (CRESTOR) 5 Mg Tablet, 1 TAB PO 2 times per week, #30 TAB 5 Refills 09/29/19 Sertraline Hcl (ZOLOFT) 50 Mg Tablet, 1 TAB PO DAILY, #30 TAB 2 Refills 09/29/19 Digoxin (DIGOXIN) 250 Mcg Tablet, 250 MCG PO DAILY for AFIB/HEART FAILURE, TAB 09/29/19 Lorazepam (LORAZEPAM) 0.5 Mg Tablet, 0.5 MG PO 06/15/13 Discontinued Reported Medications Lorazepam (ATIVAN) 0.5 Mg Tablet, 0.5 MG PO BID, TAB 09/29/19 Atenolol (ATENOLOL) 50 Mg Tablet, 1 TAB PO DAILY, #30 TAB 5 Refills 09/29/19 Sertraline Hcl (SERTRALINE HCL) 50 Mg Tablet, 50 MG PO 06/15/13 Rosuvastatin Calcium (CRESTOR) 5 Mg Tablet, 5 MG PO 06/15/13 Digoxin (DIGOXIN) 0.25 Mg/5 Ml Solution, 0.25 MG PO 06/15/13 Atenolol (ATENOLOL) 50 Mg Tablet, 50 MG PO 06/15/13 IBIS HOLCOMB III DO Oct 03, 2019 11:23
--- NOTE | 2019-10-03 11:45 | PDOC ---
[facility] PROGRESS NOTE Chief Complaint Chief Complaint Partially occlusive M2 segment right middle cerebral artery thrombus. Hyperdensity noted within the sulci of the right frontal lobe and right occipital lobe concerning for acute cerebral hemorrhage status post TPA Hypertension Afib HLD History of Present Illness History of Present Illness 10/03/2019 Patient seen and examined Sitting up in bed in NAD, anxious to go home Patient appeared to be at baseline Will discharge Chart reviewed Discussed with RN 10/02/2019 Patient seen and examined Cardiac monitoring with atrial fibrillation Sitting up in bed in [facility] Chart reviewed Discussed with RN 79 year old female with a last known normal at 15:15 presents with slurred speech and left-sided facial droop. Patient denies any weakness in arms or legs or visual changes. Of note patient had a little bit of a headache over the last 2 days but has not had any today. Patient denies any fevers chills cough vomiting or diarrhea. Patient is also having little slurred speech. ED course: Patient received TPA approved neuro exam. CT head was repeated and did show some hyperdensities. Patient will be transferred to the ICU for close monitorin g of her neuro exam.Patient seen and examined in the ED. She had reported NIH of 3. 10/01/2019 Patient seen and examined bedside. Patient does continue to have subtle headache that is improved with Tylenol. NIH score of 0. Patient has described adverse effects with both atorvastatin and rosuvastatin. She does take rosuvastatin as an outpatient about 2 times per month. Mainly limited by her complaints with leg pain. Patient's chart, labs, images were reviewed and discussed with RN Vitals/I&O Vitals/I&O: Vital Signs Date Time Temp Pulse Resp B/P (MAP) Pulse Ox O2 Delivery O2 Flow Rate FiO2 10/03/19 08:25 71 124/68 10/03/19 08:00 Room Air 10/03/19 07:00 98.1 18 94 98.1 I & O 10/02/19 10/02/19 10/03/19 15:00 23:00 07:00 Intake Total 1500 ml Balance 1500 ml Physical Exam Physical Exam: GEN: No apparent distress. Alert and oriented HEENT: Normal cephalic, atraumatic, external auditory canals are patent EYES: Extraocular muscles are intact, pupil are equally round and reactive to light and accommodation MUSCULOSKELETAL: Well developed , well nourished, good range of motion ENDOCRINE: No thyromegaly was palpated LYMPHATICS: No cervical chain or axillary nodes were noted HEMATOPOIETIC: No bruising NECK: Supple, no JVD, no thyromegaly was noted LUNGS: Clear to auscultation in all lung manley without rhonchi or wheezing HEART: RRR, S!, S2 present. Peripheral pulses intact, no obvious murmurs noted ABDOMEN: Soft, nontender. Positive bowel sounds, no organomegaly, normal bowel sounds EXTREMITIES: Without clubbing, cyanosis, or edema. Pedal pulses intact. Negative Homans sign NEUROLOGIC: Normal speech and tone. A&O x 3, moves all extremities. Slight left lower facial droop PSYCHIATRIC: Normal affect, normal mood. Stable SKIN: No ulcerations or rashes, good skin turgor, no jaundice VASCULAR: Good capillary refill, neurovascular bundle appears to be intact General: Alert, Oriented X3, Cooperative, No acute distress Heart: Regular rate, Normal S1, Normal S2 Lungs: Clear Abdomen: Soft, No tenderness Extremities: No cyanosis, No edema Skin: No rashes, No breakdown, No significant lesion Review of Systems Review of Systems: Pertinent as per HPI, otherwise 10 point review of systems is negative Assessment and Plan Assessmemt and Plan Problems Medical Problems: (1) Acute ischemic cerebrovascular accident (CVA) involving right middle cerebral artery territory Status: Acute ASSESSMENT Partially occlusive M2 segment right middle cerebral artery thrombus. Hyperdensity noted within the sulci of the right frontal lobe and right occipital lobe concerning for acute cerebral hemorrhage status post TPA Hypertension Afib HLD PLAN Follow-up with Dr. Patel and Dr. Pozo in 4-6 weeks Home meds PT/OT Appreciate subspecialist input Discharge home Comment Review of Relevant I have reviewed the following items mike (where applicable) has been applied. Medications: Current Medications Medications (Trade) Dose Ordered Sig/Yolanda Route PRN Reason Start Time Stop Time Status Last Admin Dose Admin Metoprolol Tartrate (Lopressor Vial) 5 mg 1X ONCE IVP 10/02/19 14:00 10/02/19 14:01 DC 10/02/19 14:38 Metoprolol Tartrate (Lopressor) 25 mg BID PO 10/02/19 15:00 10/03/19 08:25 Atorvastatin Calcium (Lipitor) 10 mg QHS PO 10/02/19 21:00 10/02/19 22:15 Justicifation of Admission Dx: Justifications for Admission: Justification of Admission Dx: Yes IBIS HOLCOMB III DO Oct 03, 2019 11:45
--- NOTE | 2019-10-03 11:57 | DS ---
DATE OF DISCHARGE: 10/03/2019 ADMISSION DIAGNOSES: 1. Stroke. 2. Small hemorrhagic bleed after TPA. DISCHARGE DIAGNOSES: 1. Resolving stroke (she got TPA therapy). 2. Small hemorrhagic bleed into the brain after TPA. 3. History of anxiety. 4. Hyperlipidemia. 5. Hypertension. 6. Tachycardia. 7. Paroxysmal atrial fibrillation. CONSULTS: Cardiology and Neurology. PROCEDURES: None. HOSPITAL COURSE: The patient is a pleasant elderly female, who basically presented with slurred speech and facial droop and she got here in a timely fashion, so we were able to give her TPA. Post-TPA, she did develop a small bleed. We admitted the patient. The above consults were obtained. She developed some AFib while she was here as well, but we are unable to give her anticoagulation because of the bleeding. We were able to obtain good rate control with digoxin and metoprolol. Today, I saw her and examined her, she is doing great. Heart sounds are normal. Lungs are clear. She is wanting to go home. We planned to discharge on metoprolol and digoxin and she is going to eventually start Eliquis when the risk for bleeding has diminished. DISPOSITION: Home. ACTIVITY: As tolerated. DIET: Low sodium. MEDICATIONS: Please see the MRAD. TOTAL TIME: 32 minutes. IBIS HOLCOMB DO DR: YANIRA/edenilson JOB#: [id number] / [id number]
--- NOTE | 2019-10-03 13:32 | NUR ---
Discharge Note: PT DISCHARGED HOME WITH SELF CARE. PT LEFT FACILITY VIA PRIVATE VEHICLE AT 1315 WITH SPOUSE. PT STABLE AND ALERT UPON DISCHARGE. PT PIV REMOVED FROM L AC WITHOUT COMPLICATIONS, BANDAGE APPLIED. PT EDUCATED ABOUT DISCHARGE INSTRUCTIONS, DISCHARGE MEDICATIONS, AND FOLLOW-UP INSTRUCTIONS/CARE. PT EDUCATED TO CALL OUTPATIENT PT/OT AT [place] FOR THERAPY, TO FOLLOW-UP WITH DR. NORTON ON ANTI-COAG TREATMENT AFTER BLADDER SURGERY, AND TO FOLLOW-UP WITH NEUROLOGY. ALL QUESTIONS ANSWERED AT THIS TIME. PT GIVEN HER PRESCRIPTIONS. NO CONCERNS VOICED. PT LEFT WITH ALL PERSONAL BELONGINGS. MOOSE RIOS Discharge instructions and discharge home medications reviewed with Patient and a copy given. All questions have been answered and understanding verbalized.
== END 2019-10-03 13:15 | disposition home or self-care (01) | DRG 61 ==
LOC: ER 16:15 → 1 WEST ICU 18:11 → 5 NORTH 10-01 11:17
PROVIDERS: ADMIT Internal Medicine; ATTEND Internal Medicine
DX: I63.511 Cerebral infarction due to unspecified occlusion or stenosis of right middle cerebral artery (principal); I60.9 Nontraumatic subarachnoid hemorrhage, unspecified; I10 Essential (primary) hypertension; J43.9 Emphysema, unspecified; E78.00 Pure hypercholesterolemia, unspecified; E78.5 Hyperlipidemia, unspecified; F17.210 Nicotine dependence, cigarettes, uncomplicated; I48.0 Paroxysmal atrial fibrillation; Z82.49 Family history of ischemic heart disease and other diseases of the circulatory system; Z85.51 Personal history of malignant neoplasm of bladder; Z85.72 Personal history of non-Hodgkin lymphomas; F41.9 Anxiety disorder, unspecified; M19.90 Unspecified osteoarthritis, unspecified site; Z88.5 Allergy status to narcotic agent; R00.0 Tachycardia, unspecified
CPT/HCPCS: 36415; 70450; 70496; 70498; 70551; 71045; 80048; 80053; 80061; 80076; 80162; 81001; 82962; 83036; 84484; 85025; 85027; 85610; 85730; 93005; 93306; 96365; 96368; 96375; 99291; J2405; J2997; J3490; 92610-GN; 97112-GP; 97116-GP; 97530-GO; 97535-GO; G0378

== ENCOUNTER → 2020-11-24 | Outpatient (CLI) | payer MEDICARE ==
[~2020-11-24] MED LIST changes: +APIX2.5T PO; +CETI1TAB7 PO; +DIGO250T3 PO; +GINK120T3 PO; +GREE150C PO; +IBUP-1027 PO; +LORA0.5T96 PO; +MAGN400C PO; +METO25TA4 PO; +SERT-267 PO; +SERT50TA PO; -SERT50TA8 PO; +VIT1TAB.7 PO; +VIT1TABL65 PO
--- NOTE | 2020-11-24 13:59 | KCIC ---
Bilateral digital screening mammograms with 3-D tomosynthesis: Reason for examination: Routine screening. Comparison is made to previous studies dated back to 12/09/2015. Bilateral mammograms in CC and oblique projections were obtained with 2-D imaging and 3-D tomosynthes is imaging on a Siemens Inspiration unit and reviewed on the workstation. Interpretation was made wit h the benefit of CAD. The skin and nipples show no abnormalities. No abnormal axillary lymph nodes are seen. The breast par enchyma shows scattered fatty and fibroglandular density. (Breast density: Category B.) There are no dominant masses, suspicious calcifications or architectural distortion. Impression: No evidence of malignancy. Recommend routine screening. BI-RAD Category 1: Negative. "Our facility is accredited by the [employer] Mammography Program." This patient's information has been entered into a reminder system for the patient to be notified wit h the results of her examination and a target date for the next mammogram. Electronically signed by: Sarah Avila MD (11/24/2020 1:57 PM) [id number]
== END ==
LOC: KCIC MAMMO 10:58
PROVIDERS: ATTEND Internal Medicine
DX: Z12.31 Encounter for screening mammogram for malignant neoplasm of breast (principal)
CPT/HCPCS: 77063; 77067